=== PATIENT | female | born 1980 | race Caucasian/White ===

== ENCOUNTER 2017-08-13 13:52 | Inpatient (IN) | payer OTHER ==
[2017-08-13] MEDS ORDERED: NALOXONE 0.4 MG/ML 10 ML VIAL IVP STA (14:00)
--- NOTE | 2017-08-13 14:10 | ED ---
Overdose HPI - General Stated Complaint: Overdose Time Seen by Provider: 08/13/17 13:52 Source: EMS, RN notes reviewed, old records reviewed Mode of arrival: EMS - History of Present Illness Initial Comments: This is a 36-year-old female with a history of hypothyroidism but no known history had this time of depression or suicidal thought who is reported to taken 120 tablets of medication. She had a pill bottle for 60 Fioricet she also had a daily pill container is unclear how much end of what medication he did consume. His believes she did this before paramedics were called. She was found be unresponsive and did not respond to 4 mg total of Narcan she was in respiratory depression she did vomit and possibly aspirated. She was intubated with a 7.5 ET tube. She did maintain pressure and pulse. No other information available at this time. MD Complaint: intentional overdose - Related Data Allergies Allergy/AdvReac Type Severity Reaction Status Date / Time No Known Allergies Allergy Verified 08/13/17 15:52 Review of Systems ROS Statement: Those systems with pertinent positive or pertinent negative responses have been documented in the HPI. ROS Other: All systems not noted in ROS Statement are negative. Limitations: ROS unobtainable due to patients medical condition General Exam - General Exam Comments Initial Comments: This is a well-developed well-nourished unresponsive female intubated General appearance: other Head exam: Present: atraumatic (Unresponsive), normocephalic, normal inspection Eye exam: Present: other (Pupils midline is sluggish bilaterally) ENT exam: Present: other (7.5 ET tube present in the oropharynx) Neck exam: Present: normal inspection. Absent: tenderness, meningismus, lymphadenopathy Respiratory exam: Present: rhonchi, decreased breath sounds, other (Equal breath sounds bilaterally) Cardiovascular Exam: Present: normal rhythm, tachycardia, normal heart sounds. Absent: systolic murmur, diastolic murmur, rubs, gallop, clicks GI/Abdominal exam: Present: soft. Absent: bruit, pulsatile mass, hernia Rectal exam: Present: deferred Extremities exam: Present: normal inspection Back exam: Present: normal inspection Neurological exam: Present: other (Unresponsive) Psychiatric exam: Present: other Skin exam: Present: warm, dry, intact, normal color. Absent: rash Course Vital Signs 08/13/17 08/13/17 08/13/17 13:55 14:27 14:35 Temperature 97.3 F L Pulse Rate 112 H 111 H 108 H Respiratory 10 L 26 H 23 Rate Blood Pressure 142/76 147/92 130/80 O2 Sat by Pulse 98 98 97 Oximetry 08/13/17 15:22 Temperature Pulse Rate 89 Respiratory 14 Rate Blood Pressure 126/77 O2 Sat by Pulse 95 Oximetry - Reevaluation(s) Reevaluation #1: 08/13/17 17:07 Patient is so is no change in status no improvement but it no worse. Medical Decision Making - Medical Decision Making I did discuss the findings with the hospitalist and with Dr. Knig on the patient will be admitted. She'll continue on the IV medications and fluids. - Lab Data Result diagrams: 08/13/17 13:59 08/13/17 13:59 Lab Results 08/13/17 08/13/17 08/13/17 Range/Units 13:55 13:59 13:59 WBC (3.8-10.6) k/uL RBC (3.80-5.40) m/uL Hgb (11.4-16.0) gm/dL Hct (34.0-46.0) % MCV (80.0-100.0) fL MCH (25.0-35.0) pg MCHC (31.0-37.0) g/dL RDW (11.5-15.5) % Plt Count (150-450) k/uL Neutrophils % % Lymphocytes % % Monocytes % % Eosinophils % % Basophils % % Neutrophils # (1.3-7.7) k/uL Lymphocytes # (1.0-4.8) k/uL Monocytes # (0-1.0) k/uL Eosinophils # (0-0.7) k/uL Basophils # (0-0.2) k/uL Differential Comment Manual Slide Review Poikilocytosis (manual PT (9.0-12.0) sec INR (<1.2) Sample Site ABG pH (7.35-7.45) ABG pCO2 (35-45) mmHg ABG pO2 (83-108) mmHg ABG HCO3 (21-25) mmol/L ABG Total CO2 (19-24) mmol/L ABG O2 Saturation (94-97) % ABG Base Excess mmol/L Jluis Test FiO2 % Sodium 146 H (137-145) mmol/L Potassium 3.7 (3.5-5.1) mmol/L Chloride 106 (98-107) mmol/L Carbon Dioxide 22 (22-30) mmol/L Anion Gap 18 mmol/L BUN 10 (7-17) mg/dL Creatinine 0.50 L (0.52-1.04) mg/dL Est GFR (CKD-EPI)AfAm >90 (>60 ml/min/1.73 sqM) Est GFR (CKD-EPI)NonAf >90 (>60 ml/min/1.73 sqM) Glucose 134 H (74-99) mg/dL Osmolality 296 (280-301) mosm/kg Plasma Lactic Acid Hollis (0.7-2.0) mmol/L Calcium 9.2 (8.4-10.2) mg/dL Magnesium 1.7 (1.6-2.3) mg/dL Total Bilirubin 0.1 L (0.2-1.3) mg/dL AST 32 (14-36) U/L ALT 44 (9-52) U/L Alkaline Phosphatase 68 (38-126) U/L Ammonia 18 (<30) umol/L Total Creatine Kinase 31 (30-135) U/L CK-MB (CK-2) <0.2 (0.0-2.4) ng/mL CK-MB (CK-2) Rel Index Troponin I <0.012 (0.000-0.034) ng/mL Total Protein 6.6 (6.3-8.2) g/dL Albumin 4.0 (3.5-5.0) g/dL Amylase 60 (30-110) U/L Lipase 243 (23-300) U/L Urine Color Urine Appearance (Clear) Urine pH (5.0-8.0) Ur Specific [place] (1.001-1.035) Urine Protein (Negative) Urine Glucose (UA) (Negative) Urine Ketones (Negative) Urine Blood (Negative) Urine Nitrite (Negative) Urine Bilirubin (Negative) Urine Urobilinogen (<2.0) mg/dL Ur Leukocyte Esterase (Negative) Urine HCG, Qual (Not Detectd) Salicylates <1.0 mg/dL Urine Opiates Screen (NotDetected) Ur Oxycodone Screen (NotDetected) Urine Methadone Screen (NotDetected) Ur Propoxyphene Screen (NotDetected) Acetaminophen 222.0 H* ug/mL Ur Barbiturates Screen (NotDetected) U Tricyclic Antidepress (NotDetected) Ur Phencyclidine Scrn (NotDetected) Ur Amphetamines Screen (NotDetected) U Methamphetamines Scrn (NotDetected) U Benzodiazepines Scrn (NotDetected) Urine Cocaine Screen (NotDetected) U Marijuana (THC) Screen (NotDetected) Serum Alcohol <10 mg/dL 08/13/17 08/13/17 08/13/17 Range/Units 13:59 13:59 13:59 WBC 15.3 H (3.8-10.6) k/uL RBC 4.47 (3.80-5.40) m/uL Hgb 14.3 (11.4-16.0) gm/dL Hct 41.9 (34.0-46.0) % MCV 93.6 (80.0-100.0) fL MCH 32.0 (25.0-35.0) pg MCHC 34.2 (31.0-37.0) g/dL RDW 12.8 (11.5-15.5) % Plt Count 332 (150-450) k/uL Neutrophils % 42 % Lymphocytes % 50 % Monocytes % 5 % Eosinophils % 1 % Basophils % 0 % Neutrophils # 6.5 (1.3-7.7) k/uL Lymphocytes # 7.6 H (1.0-4.8) k/uL Monocytes # 0.8 (0-1.0) k/uL Eosinophils # 0.1 (0-0.7) k/uL Basophils # 0.1 (0-0.2) k/uL Differential Comment Manual Slide Review Performed Poikilocytosis (manual Present PT 10.4 (9.0-12.0) sec INR 1.1 (<1.2) Sample Site ABG pH (7.35-7.45) ABG pCO2 (35-45) mmHg ABG pO2 (83-108) mmHg ABG HCO3 (21-25) mmol/L ABG Total CO2 (19-24) mmol/L ABG O2 Saturation (94-97) % ABG Base Excess mmol/L Jluis Test FiO2 % Sodium (137-145) mmol/L Potassium (3.5-5.1) mmol/L Chloride (98-107) mmol/L Carbon Dioxide (22-30) mmol/L Anion Gap mmol/L BUN (7-17) mg/dL Creatinine (0.52-1.04) mg/dL Est GFR (CKD-EPI)AfAm (>60 ml/min/1.73 sqM) Est GFR (CKD-EPI)NonAf (>60 ml/min/1.73 sqM) Glucose (74-99) mg/dL Osmolality (280-301) mosm/kg Plasma Lactic Acid Hollis 3.0 H* (0.7-2.0) mmol/L Calcium (8.4-10.2) mg/dL Magnesium (1.6-2.3) mg/dL Total Bilirubin (0.2-1.3) mg/dL AST (14-36) U/L ALT (9-52) U/L Alkaline Phosphatase (38-126) U/L Ammonia (<30) umol/L Total Creatine Kinase (30-135) U/L CK-MB (CK-2) (0.0-2.4) ng/mL CK-MB (CK-2) Rel Index Troponin I (0.000-0.034) ng/mL Total Protein (6.3-8.2) g/dL Albumin (3.5-5.0) g/dL Amylase (30-110) U/L Lipase (23-300) U/L Urine Color Urine Appearance (Clear) Urine pH (5.0-8.0) Ur Specific [place] (1.001-1.035) Urine Protein (Negative) Urine Glucose (UA) (Negative) Urine Ketones (Negative) Urine Blood (Negative) Urine Nitrite (Negative) Urine Bilirubin (Negative) Urine Urobilinogen (<2.0) mg/dL Ur Leukocyte Esterase (Negative) Urine HCG, Qual (Not Detectd) Salicylates mg/dL Urine Opiates Screen (NotDetected) Ur Oxycodone Screen (NotDetected) Urine Methadone Screen (NotDetected) Ur Propoxyphene Screen (NotDetected) Acetaminophen ug/mL Ur Barbiturates Screen (NotDetected) U Tricyclic Antidepress (NotDetected) Ur Phencyclidine Scrn (NotDetected) Ur Amphetamines Screen (NotDetected) U Methamphetamines Scrn (NotDetected) U Benzodiazepines Scrn (NotDetected) Urine Cocaine Screen (NotDetected) U Marijuana (THC) Screen (NotDetected) Serum Alcohol mg/dL 08/13/17 08/13/17 08/13/17 Range/Units 14:14 14:14 14:41 WBC (3.8-10.6) k/uL RBC (3.80-5.40) m/uL Hgb (11.4-16.0) gm/dL Hct (34.0-46.0) % MCV (80.0-100.0) fL MCH (25.0-35.0) pg MCHC (31.0-37.0) g/dL RDW (11.5-15.5) % Plt Count (150-450) k/uL Neutrophils % % Lymphocytes % % Monocytes % % Eosinophils % % Basophils % % Neutrophils # (1.3-7.7) k/uL Lymphocytes # (1.0-4.8) k/uL Monocytes # (0-1.0) k/uL Eosinophils # (0-0.7) k/uL Basophils # (0-0.2) k/uL Differential Comment Manual Slide Review Poikilocytosis (manual PT (9.0-12.0) sec INR (<1.2) Sample Site R RAD ABG pH 7.29 L (7.35-7.45) ABG pCO2 51 H (35-45) mmHg ABG pO2 127 H (83-108) mmHg ABG HCO3 25 (21-25) mmol/L ABG Total CO2 26 H (19-24) mmol/L ABG O2 Saturation 99.1 H (94-97) % ABG Base Excess -2.1 mmol/L Jluis Test Yes FiO2 100 % Sodium (137-145) mmol/L Potassium (3.5-5.1) mmol/L Chloride (98-107) mmol/L Carbon Dioxide (22-30) mmol/L Anion Gap mmol/L BUN (7-17) mg/dL Creatinine (0.52-1.04) mg/dL Est GFR (CKD-EPI)AfAm (>60 ml/min/1.73 sqM) Est GFR (CKD-EPI)NonAf (>60 ml/min/1.73 sqM) Glucose (74-99) mg/dL Osmolality (280-301) mosm/kg Plasma Lactic Acid Hollis (0.7-2.0) mmol/L Calcium (8.4-10.2) mg/dL Magnesium (1.6-2.3) mg/dL Total Bilirubin (0.2-1.3) mg/dL AST (14-36) U/L ALT (9-52) U/L Alkaline Phosphatase (38-126) U/L Ammonia (<30) umol/L Total Creatine Kinase (30-135) U/L CK-MB (CK-2) (0.0-2.4) ng/mL CK-MB (CK-2) Rel Index Troponin I (0.000-0.034) ng/mL Total Protein (6.3-8.2) g/dL Albumin (3.5-5.0) g/dL Amylase (30-110) U/L Lipase (23-300) U/L Urine Color Light Yellow Urine Appearance Clear (Clear) Urine pH 5.5 (5.0-8.0) Ur Specific [place] 1.008 (1.001-1.035) Urine Protein Negative (Negative) Urine Glucose (UA) Negative (Negative) Urine Ketones Negative (Negative) Urine Blood Negative (Negative) Urine Nitrite Negative (Negative) Urine Bilirubin Negative (Negative) Urine Urobilinogen <2.0 (<2.0) mg/dL Ur Leukocyte Esterase Negative (Negative) Urine HCG, Qual Not Detected (Not Detectd) Salicylates mg/dL Urine Opiates Screen Not Detected (NotDetected) Ur Oxycodone Screen Not Detected (NotDetected) Urine Methadone Screen Not Detected (NotDetected) Ur Propoxyphene Screen Not Detected (NotDetected) Acetaminophen ug/mL Ur Barbiturates Screen Detected H (NotDetected) U Tricyclic Antidepress Not Detected (NotDetected) Ur Phencyclidine Scrn Not Detected (NotDetected) Ur Amphetamines Screen Not Detected (NotDetected) U Methamphetamines Scrn Not Detected (NotDetected) U Benzodiazepines Scrn Detected H (NotDetected) Urine Cocaine Screen Not Detected (NotDetected) U Marijuana (THC) Screen Not Detected (NotDetected) Serum Alcohol mg/dL - EKG Data -: EKG Interpreted by Me EKG shows normal: sinus rhythm (Sinus tachycardia rate 105. Interval 150 to QRS 80 QT since QTC 356/[address]-T wave changes.) - Radiology Data Radiology results: report reviewed (Imaging shows no evidence of aspiration at this time.), image reviewed Critical Care Time Critical Care Time: Yes Critical Care Time: 43 minutes of critical care time which includes monitoring initially EMS call discussed with paramedics history physical labs x-rays several reevaluation the patient discussion with the main physician and consult. Admission orders and documentation of the above Disposition Clinical Impression: Drug overdose, Tylenol overdose, Depression, Suicidal overdose, Metabolic encephalopathy Disposition: ADMITTED IP TO THIS HOSP Condition: Serious Referrals: Velasquez Hinds DO [Primary Care Provider] - 1-2 days
[2017-08-13 14:16] LABS: Basophils # (A) 0.1 k/uL (0-0.2); Basophils % (A) 0 %; Eosinophils # (A) 0.1 k/uL (0-0.7); Eosinophils % (A) 1 %; HCT 41.9 % (34.0-46.0); HGB 14.3 gm/dL (11.4-16.0); Lymphocytes # (A) 7.6 k/uL (1.0-4.8); Lymphocytes % (A) 50 %; MCHC 34.2 g/dL (31.0-37.0); MCV 93.6 fL (80.0-100.0); Mean Platelet Volume 7.6; Monocytes # (A) 0.8 k/uL (0-1.0); Monocytes % (A) 5 %; Neutrophils # (A) 6.5 k/uL (1.3-7.7); Neutrophils % (A) 42 %; Platelet Count 332 k/uL (150-450); RBC 4.47 m/uL (3.80-5.40); RDW 12.8 % (11.5-15.5); WBC 15.3 k/uL (3.8-10.6)
[2017-08-13 14:25] LABS: INR 1.1 (<1.2); Prothrombin Time 10.4 sec (9.0-12.0)
[2017-08-13 14:29] LABS: AST 32 U/L (14-36); Alcohol <10 mg/dL; Alkaline Phosphatase 68 U/L (38-126); Amylase 60 U/L (30-110); Anion Gap 18 mmol/L; Blood Urea Nitrogen 10 mg/dL (7-17); Calcium 9.2 mg/dL (8.4-10.2); Carbon Dioxide 22 mmol/L (22-30); Chloride 106 mmol/L (98-107); Glucose 134 mg/dL (74-99); Lipase 243 U/L (23-300); Magnesium 1.7 mg/dL (1.6-2.3); Potassium 3.7 mmol/L (3.5-5.1); Salicylate <1.0 mg/dL; Sodium 146 mmol/L (137-145); Total Bilirubin 0.1 mg/dL (0.2-1.3); Total Protein 6.6 g/dL (6.3-8.2)
[2017-08-13] MEDS ORDERED: SODIUM CHLORIDE 0.9% 1,000 ML IV STA (14:29)
[2017-08-13] MEDS ORDERED: SODIUM CHLORIDE 0.9% 2,000 ML IV ONE (14:29)
[2017-08-13 14:30] LABS: ALT 44 U/L (9-52)
[2017-08-13 14:36] LABS: Creatine Kinase 31 U/L (30-135)
[2017-08-13] MEDS ORDERED: PROPOFOL 1,000 MG in EMPTY BAG 1 BAG IV ONE (14:38)
[2017-08-13] MEDS ORDERED: ACETYLCYSTEINE IV 200 MG/ML 30 ML VIAL IV ONE ×2 (14:40→14:42)
[2017-08-13 14:45] LABS: ABG Base Excess -2.1 mmol/L; ABG HCO3 25 mmol/L (21-25); ABG Oxygen Saturation 99.1 % (94-97); ABG PCO2 51 mmHg (35-45); ABG PH 7.29 (7.35-7.45); ABG PO2 127 mmHg (83-108); ABG TCO2 26 mmol/L (19-24)
[2017-08-13 14:46] LABS: Amphetamine Screen,Urine Not Detected (NotDetected); Appearance,Urine Clear (Clear); Barbiturate Screen,Urine Detected (NotDetected); Benzodiazepines Screen,Urine Detected (NotDetected); Bilirubin,Urine Negative (Negative); Blood,Urine Negative (Negative); Cocaine Screen,Urine Not Detected (NotDetected); Color,Urine Light Yellow; Glucose,Urine (UA) Negative (Negative); Ketones,Urine Negative (Negative); Leukocyte Esterase,Urine Negative (Negative); Methadone Screen, Urine Not Detected (NotDetected); Nitrite,Urine Negative (Negative); Opiate Screen,Urine Not Detected (NotDetected); Oxycodone Screen, Urine Not Detected (NotDetected); PH, Urine 5.5 (5.0-8.0); Phencyclidine Screen,Urine Not Detected (NotDetected); Protein,Urine Negative (Negative); Specific Gravity,Urine 1.008 (1.001-1.035); Tricyclic Antidepressant,Urine Not Detected (NotDetected); Urn Cannabinoid Scrn Not Detected (NotDetected); Urobilinogen,Urine <2.0 mg/dL (<2.0)
[2017-08-13 14:50] LABS: Creatine Kinase MB <0.2 ng/mL (0.0-2.4); Troponin I <0.012 ng/mL (0.000-0.034)
[2017-08-13 15:00] LABS: Poikilocytosis (M) Present
[2017-08-13] MEDS ORDERED: WATER IV ONE ×6 (15:00→21:30)
[2017-08-13] MEDS ORDERED: DEXTROSE 5% IV ONE ×6 (15:00→21:30)
[2017-08-13] MEDS ORDERED: ACETYLCYSTEINE IV ONE ×6 (15:00→21:30)
--- NOTE | 2017-08-13 15:49 | XR ---
EXAMINATION TYPE: XR chest 1V portable DATE OF EXAM: 08/13/2017 COMPARISON: NONE HISTORY: Shortness of breath TECHNIQUE: Single frontal view of the chest is obtained. FINDINGS: Endotracheal tube is located at the level of the clavicles. The roger is difficult to vis ualize. There is an enteric tube with the tip overlying the expected location of the stomach. On this suboptimal portable AP semiupright view of the chest the lungs appear clear. No definite pneumothora x or pleural effusion is seen. The cardiac silhouette is within normal limits. IMPRESSION: Suboptimal examination. Endotracheal tube at the clavicles Enteric tube tip appears to be within the stomach.
[2017-08-13] MEDS ORDERED: NALOXONE 0.4 MG/ML 1 ML VIAL IV PRN (17:10)
--- NOTE | 2017-08-13 17:18 | ED ---
Medical Decision Making - Lab Data Result diagrams: 08/13/17 13:59 08/13/17 13:59 Lab Results 08/13/17 08/13/17 08/13/17 Range/Units 13:55 13:59 13:59 WBC (3.8-10.6) k/uL RBC (3.80-5.40) m/uL Hgb (11.4-16.0) gm/dL Hct (34.0-46.0) % MCV (80.0-100.0) fL MCH (25.0-35.0) pg MCHC (31.0-37.0) g/dL RDW (11.5-15.5) % Plt Count (150-450) k/uL Neutrophils % % Lymphocytes % % Monocytes % % Eosinophils % % Basophils % % Neutrophils # (1.3-7.7) k/uL Lymphocytes # (1.0-4.8) k/uL Monocytes # (0-1.0) k/uL Eosinophils # (0-0.7) k/uL Basophils # (0-0.2) k/uL Differential Comment Manual Slide Review Poikilocytosis (manual PT (9.0-12.0) sec INR (<1.2) Sample Site ABG pH (7.35-7.45) ABG pCO2 (35-45) mmHg ABG pO2 (83-108) mmHg ABG HCO3 (21-25) mmol/L ABG Total CO2 (19-24) mmol/L ABG O2 Saturation (94-97) % ABG Base Excess mmol/L Jluis Test FiO2 % Sodium 146 H (137-145) mmol/L Potassium 3.7 (3.5-5.1) mmol/L Chloride 106 (98-107) mmol/L Carbon Dioxide 22 (22-30) mmol/L Anion Gap 18 mmol/L BUN 10 (7-17) mg/dL Creatinine 0.50 L (0.52-1.04) mg/dL Est GFR (CKD-EPI)AfAm >90 (>60 ml/min/1.73 sqM) Est GFR (CKD-EPI)NonAf >90 (>60 ml/min/1.73 sqM) Glucose 134 H (74-99) mg/dL Osmolality 296 (280-301) mosm/kg Plasma Lactic Acid Hollis (0.7-2.0) mmol/L Calcium 9.2 (8.4-10.2) mg/dL Magnesium 1.7 (1.6-2.3) mg/dL Total Bilirubin 0.1 L (0.2-1.3) mg/dL AST 32 (14-36) U/L ALT 44 (9-52) U/L Alkaline Phosphatase 68 (38-126) U/L Ammonia 18 (<30) umol/L Total Creatine Kinase 31 (30-135) U/L CK-MB (CK-2) <0.2 (0.0-2.4) ng/mL CK-MB (CK-2) Rel Index Troponin I <0.012 (0.000-0.034) ng/mL Total Protein 6.6 (6.3-8.2) g/dL Albumin 4.0 (3.5-5.0) g/dL Amylase 60 (30-110) U/L Lipase 243 (23-300) U/L Urine Color Urine Appearance (Clear) Urine pH (5.0-8.0) Ur Specific [place] (1.001-1.035) Urine Protein (Negative) Urine Glucose (UA) (Negative) Urine Ketones (Negative) Urine Blood (Negative) Urine Nitrite (Negative) Urine Bilirubin (Negative) Urine Urobilinogen (<2.0) mg/dL Ur Leukocyte Esterase (Negative) Urine HCG, Qual (Not Detectd) Salicylates <1.0 mg/dL Urine Opiates Screen (NotDetected) Ur Oxycodone Screen (NotDetected) Urine Methadone Screen (NotDetected) Ur Propoxyphene Screen (NotDetected) Acetaminophen 222.0 H* ug/mL Ur Barbiturates Screen (NotDetected) U Tricyclic Antidepress (NotDetected) Ur Phencyclidine Scrn (NotDetected) Ur Amphetamines Screen (NotDetected) U Methamphetamines Scrn (NotDetected) U Benzodiazepines Scrn (NotDetected) Urine Cocaine Screen (NotDetected) U Marijuana (THC) Screen (NotDetected) Serum Alcohol <10 mg/dL 08/13/17 08/13/17 08/13/17 Range/Units 13:59 13:59 13:59 WBC 15.3 H (3.8-10.6) k/uL RBC 4.47 (3.80-5.40) m/uL Hgb 14.3 (11.4-16.0) gm/dL Hct 41.9 (34.0-46.0) % MCV 93.6 (80.0-100.0) fL MCH 32.0 (25.0-35.0) pg MCHC 34.2 (31.0-37.0) g/dL RDW 12.8 (11.5-15.5) % Plt Count 332 (150-450) k/uL Neutrophils % 42 % Lymphocytes % 50 % Monocytes % 5 % Eosinophils % 1 % Basophils % 0 % Neutrophils # 6.5 (1.3-7.7) k/uL Lymphocytes # 7.6 H (1.0-4.8) k/uL Monocytes # 0.8 (0-1.0) k/uL Eosinophils # 0.1 (0-0.7) k/uL Basophils # 0.1 (0-0.2) k/uL Differential Comment Manual Slide Review Performed Poikilocytosis (manual Present PT 10.4 (9.0-12.0) sec INR 1.1 (<1.2) Sample Site ABG pH (7.35-7.45) ABG pCO2 (35-45) mmHg ABG pO2 (83-108) mmHg ABG HCO3 (21-25) mmol/L ABG Total CO2 (19-24) mmol/L ABG O2 Saturation (94-97) % ABG Base Excess mmol/L Jluis Test FiO2 % Sodium (137-145) mmol/L Potassium (3.5-5.1) mmol/L Chloride (98-107) mmol/L Carbon Dioxide (22-30) mmol/L Anion Gap mmol/L BUN (7-17) mg/dL Creatinine (0.52-1.04) mg/dL Est GFR (CKD-EPI)AfAm (>60 ml/min/1.73 sqM) Est GFR (CKD-EPI)NonAf (>60 ml/min/1.73 sqM) Glucose (74-99) mg/dL Osmolality (280-301) mosm/kg Plasma Lactic Acid Hollis 3.0 H* (0.7-2.0) mmol/L Calcium (8.4-10.2) mg/dL Magnesium (1.6-2.3) mg/dL Total Bilirubin (0.2-1.3) mg/dL AST (14-36) U/L ALT (9-52) U/L Alkaline Phosphatase (38-126) U/L Ammonia (<30) umol/L Total Creatine Kinase (30-135) U/L CK-MB (CK-2) (0.0-2.4) ng/mL CK-MB (CK-2) Rel Index Troponin I (0.000-0.034) ng/mL Total Protein (6.3-8.2) g/dL Albumin (3.5-5.0) g/dL Amylase (30-110) U/L Lipase (23-300) U/L Urine Color Urine Appearance (Clear) Urine pH (5.0-8.0) Ur Specific [place] (1.001-1.035) Urine Protein (Negative) Urine Glucose (UA) (Negative) Urine Ketones (Negative) Urine Blood (Negative) Urine Nitrite (Negative) Urine Bilirubin (Negative) Urine Urobilinogen (<2.0) mg/dL Ur Leukocyte Esterase (Negative) Urine HCG, Qual (Not Detectd) Salicylates mg/dL Urine Opiates Screen (NotDetected) Ur Oxycodone Screen (NotDetected) Urine Methadone Screen (NotDetected) Ur Propoxyphene Screen (NotDetected) Acetaminophen ug/mL Ur Barbiturates Screen (NotDetected) U Tricyclic Antidepress (NotDetected) Ur Phencyclidine Scrn (NotDetected) Ur Amphetamines Screen (NotDetected) U Methamphetamines Scrn (NotDetected) U Benzodiazepines Scrn (NotDetected) Urine Cocaine Screen (NotDetected) U Marijuana (THC) Screen (NotDetected) Serum Alcohol mg/dL 08/13/17 08/13/17 08/13/17 Range/Units 14:14 14:14 14:41 WBC (3.8-10.6) k/uL RBC (3.80-5.40) m/uL Hgb (11.4-16.0) gm/dL Hct (34.0-46.0) % MCV (80.0-100.0) fL MCH (25.0-35.0) pg MCHC (31.0-37.0) g/dL RDW (11.5-15.5) % Plt Count (150-450) k/uL Neutrophils % % Lymphocytes % % Monocytes % % Eosinophils % % Basophils % % Neutrophils # (1.3-7.7) k/uL Lymphocytes # (1.0-4.8) k/uL Monocytes # (0-1.0) k/uL Eosinophils # (0-0.7) k/uL Basophils # (0-0.2) k/uL Differential Comment Manual Slide Review Poikilocytosis (manual PT (9.0-12.0) sec INR (<1.2) Sample Site R RAD ABG pH 7.29 L (7.35-7.45) ABG pCO2 51 H (35-45) mmHg ABG pO2 127 H (83-108) mmHg ABG HCO3 25 (21-25) mmol/L ABG Total CO2 26 H (19-24) mmol/L ABG O2 Saturation 99.1 H (94-97) % ABG Base Excess -2.1 mmol/L Jluis Test Yes FiO2 100 % Sodium (137-145) mmol/L Potassium (3.5-5.1) mmol/L Chloride (98-107) mmol/L Carbon Dioxide (22-30) mmol/L Anion Gap mmol/L BUN (7-17) mg/dL Creatinine (0.52-1.04) mg/dL Est GFR (CKD-EPI)AfAm (>60 ml/min/1.73 sqM) Est GFR (CKD-EPI)NonAf (>60 ml/min/1.73 sqM) Glucose (74-99) mg/dL Osmolality (280-301) mosm/kg Plasma Lactic Acid Hollis (0.7-2.0) mmol/L Calcium (8.4-10.2) mg/dL Magnesium (1.6-2.3) mg/dL Total Bilirubin (0.2-1.3) mg/dL AST (14-36) U/L ALT (9-52) U/L Alkaline Phosphatase (38-126) U/L Ammonia (<30) umol/L Total Creatine Kinase (30-135) U/L CK-MB (CK-2) (0.0-2.4) ng/mL CK-MB (CK-2) Rel Index Troponin I (0.000-0.034) ng/mL Total Protein (6.3-8.2) g/dL Albumin (3.5-5.0) g/dL Amylase (30-110) U/L Lipase (23-300) U/L Urine Color Light Yellow Urine Appearance Clear (Clear) Urine pH 5.5 (5.0-8.0) Ur Specific [place] 1.008 (1.001-1.035) Urine Protein Negative (Negative) Urine Glucose (UA) Negative (Negative) Urine Ketones Negative (Negative) Urine Blood Negative (Negative) Urine Nitrite Negative (Negative) Urine Bilirubin Negative (Negative) Urine Urobilinogen <2.0 (<2.0) mg/dL Ur Leukocyte Esterase Negative (Negative) Urine HCG, Qual Not Detected (Not Detectd) Salicylates mg/dL Urine Opiates Screen Not Detected (NotDetected) Ur Oxycodone Screen Not Detected (NotDetected) Urine Methadone Screen Not Detected (NotDetected) Ur Propoxyphene Screen Not Detected (NotDetected) Acetaminophen ug/mL Ur Barbiturates Screen Detected H (NotDetected) U Tricyclic Antidepress Not Detected (NotDetected) Ur Phencyclidine Scrn Not Detected (NotDetected) Ur Amphetamines Screen Not Detected (NotDetected) U Methamphetamines Scrn Not Detected (NotDetected) U Benzodiazepines Scrn Detected H (NotDetected) Urine Cocaine Screen Not Detected (NotDetected) U Marijuana (THC) Screen Not Detected (NotDetected) Serum Alcohol mg/dL Disposition Clinical Impression: Drug overdose, Tylenol overdose, Depression, Suicidal overdose, Metabolic encephalopathy, Respiratory failure Disposition: ADMITTED IP TO THIS [facility] Condition: Serious Referrals: Velasquez Hinds DO [Primary Care Provider] - 1-2 days
[2017-08-13 19:09] LABS: Glucose,Whole Blood 186 mg/dL (75-99)
--- NOTE | 2017-08-13 19:10 | P.HPIM ---
History of Present Illness 36-year-old female with a history of hypothyroidism but no known history had this time of depression or suicidal thought who is reported to taken 120 tablets of medication. She had a pill bottle for 60 Fioricet she also had a daily pill container is unclear how much end of what medication he did consume. His believes she did this before paramedics were called. She was found be unresponsive and did not respond to 4 mg total of Narcan she was in respiratory depression she did vomit and possibly aspirated. Patient was subsequently intubated and patient Tylenol level is around 220 and the time of her Fioricet ingestion is unknown and patient was started on acetyl cystine , liver enzymes are essentially within normal limits and was admitted to ICU patient has both metabolic as well as respiratory acidosis with a partial metabolic compensation lactic acidosis. Patient was started on IV fluids. Patient later became agitated because of which store stock associate recommended sedation for now. Review of Systems Unable to obtain due to her clinical condition Past Medical History Past Medical History: Asthma, Diabetes Mellitus, Pneumonia, Sleep Apnea/CPAP/ BIPAP, Thyroid Disorder Additional Past Medical History / Comment(s): information obtained from mother: gastric sleeve 2013, panniculectomy 2014 has not been diagnosed, "heart flutters ", [place], frequent ear infections, elevated liver enzymes, "has a hard time fighting infections" per mother History of Any Multi-Drug Resistant Organisms: C-DIFF, MRSA Date of last positivie culture/infection: 2014 MDRO Source:: ciff 03/2017, MRSA 2017 sputum Past Surgical History: Bariatric Surgery, Bladder Surgery, Hysterectomy, Tonsillectomy Additional Past Surgical History / Comment(s): gastric sleeve 2013, panniculectomy 2014, bowel and bladder "lifted", polyps in colon Past Psychological History: Depression, PTSD Smoking Status: Current every day smoker Past Alcohol Use History: None Reported Past Drug Use History: None Reported Medications and Allergies Allergies Allergy/AdvReac Type Severity Reaction Status Date / Time No Known Allergies Allergy Verified 08/13/17 15:52 Physical Exam Vitals: Vital Signs Temp Pulse Resp BP Pulse Ox 08/13/17 18:21 97.4 F L 74 16 115/65 97 08/13/17 17:00 97.8 F 81 18 122/71 96 08/13/17 16:00 86 18 133/86 97 08/13/17 15:22 89 14 126/77 95 08/13/17 14:35 108 H 23 130/80 97 08/13/17 14:27 111 H 26 H 147/92 98 08/13/17 13:55 97.3 F L 112 H 10 L 142/76 98 Intake and Output 08/13/17 08/13/17 08/13/17 06:59 14:59 22:59 Intake Total 2.558 Balance 2.558 Intake: Intake, IV Titration 2.558 Amount Propofol 1,000 mg In 2.558 Empty Bag 1 bag @ Titrate IV .Q0M ONE Rx#: [id number] Other: Weight 113.489 kg 113.489 kg PHYSICAL EXAMINATION: GENERAL: Intubated sedated HEENT: Pupils are round and equally reacting to light. EOMI. No scleral icterus. No conjunctival pallor. Normocephalic, atraumatic. No pharyngeal erythema. No thyromegaly. CARDIOVASCULAR: S1 and S2 present. No murmurs, rubs, or gallops. PULMONARY: Chest is clear to auscultation, no wheezing or crackles. ABDOMEN: Soft, nontender, nondistended, normoactive bowel sounds. No palpable organomegaly. MUSCULOSKELETAL: No joint swelling or deformity. EXTREMITIES: No cyanosis, clubbing, or pedal edema. NEUROLOGICAL: Unable to assess SKIN: No rashes. Results CBC & Chem 7: 08/13/17 13:59 08/13/17 13:59 Labs: Abnormal Lab Results - Last 24 Hours (Table) 08/13/17 08/13/17 08/13/17 Range/Units 13:59 13:59 13:59 WBC 15.3 H (3.8-10.6) k/uL Lymphocytes # 7.6 H (1.0-4.8) k/uL ABG pH (7.35-7.45) ABG pCO2 (35-45) mmHg ABG pO2 (83-108) mmHg ABG Total CO2 (19-24) mmol/L ABG O2 Saturation (94-97) % Sodium 146 H (137-145) mmol/L Creatinine 0.50 L (0.52-1.04) mg/dL Glucose 134 H (74-99) mg/dL Plasma Lactic Acid Hollis 3.0 H* (0.7-2.0) mmol/L Total Bilirubin 0.1 L (0.2-1.3) mg/dL Acetaminophen 222.0 H* ug/mL Ur Barbiturates Screen (NotDetected) U Benzodiazepines Scrn (NotDetected) 08/13/17 08/13/17 Range/Units 14:14 14:41 WBC (3.8-10.6) k/uL Lymphocytes # (1.0-4.8) k/uL ABG pH 7.29 L (7.35-7.45) ABG pCO2 51 H (35-45) mmHg ABG pO2 127 H (83-108) mmHg ABG Total CO2 26 H (19-24) mmol/L ABG O2 Saturation 99.1 H (94-97) % Sodium (137-145) mmol/L Creatinine (0.52-1.04) mg/dL Glucose (74-99) mg/dL Plasma Lactic Acid Hollis (0.7-2.0) mmol/L Total Bilirubin (0.2-1.3) mg/dL Acetaminophen ug/mL Ur Barbiturates Screen Detected H (NotDetected) U Benzodiazepines Scrn Detected H (NotDetected) Assessment and Plan Plan: -Tylenol overdose: Patient is on Mucomyst as per poison control repeat liver enzymes and INR level will be obtained again today as well as tomorrow morning. -Benzodiazepine overdose and opiate overdose patient is presently intubated Acute respiratory failure and unresponsiveness due to drug overdose and the patient is intubated as mentioned above please refer to store stock associate dictation for further details of and settings -Metabolic acidosis. Lactic acidosis, respiratory acidosis with partial metabolic compensation: Continue with IV fluids as per to support as mentioned above. Depression and suicidal ideation: Once patient is extubated awake, psychiatric will be consulted
[2017-08-13 19:44] LABS: ALT 43 U/L (9-52); AST 37 U/L (14-36); Alkaline Phosphatase 23 U/L (38-126)
[2017-08-13 19:51] LABS: INR 1.2 (<1.2); Prothrombin Time 11.1 sec (9.0-12.0)
[2017-08-13] MEDS: CHLORHEXIDINE GLUCONATE 15 ML CUP MUCOUS MEM SCH (21:03)
[2017-08-13] MEDS: PANTOPRAZOLE 40 MG/10 ML VIAL IV SCH (21:03)
[2017-08-13 21:27] VITALS: BMI 40.4
[2017-08-13] MEDS: PROPOFOL 1,000 MG in EMPTY BAG 1 BAG IV SCH (22:02)
[2017-08-13 23:27] LABS: Glucose,Whole Blood 119 mg/dL (75-99)
[2017-08-14 04:42] LABS: Basophils % (A) 0 %; Eosinophils % (A) 0 %; HCT 37.2 % (34.0-46.0); HGB 12.6 gm/dL (11.4-16.0); Lymphocytes # (A) 3.3 k/uL (1.0-4.8); Lymphocytes % (A) 28 %; MCH 31.7 pg (25.0-35.0); MCV 93.2 fL (80.0-100.0); Monocytes # (A) 0.4 k/uL (0-1.0); Monocytes % (A) 4 %; Neutrophils # (A) 7.9 k/uL (1.3-7.7); Neutrophils % (A) 67 %; Platelet Count 300 k/uL (150-450); RBC 3.99 m/uL (3.80-5.40); RDW 12.7 % (11.5-15.5); WBC 11.8 k/uL (3.8-10.6)
[2017-08-14 04:43] LABS: INR 1.2 (<1.2); Prothrombin Time 11.5 sec (9.0-12.0)
[2017-08-14 04:46] LABS: ALT 40 U/L (9-52); AST 62 U/L (14-36); Alkaline Phosphatase 54 U/L (38-126); Anion Gap 13 mmol/L; Blood Urea Nitrogen 5 mg/dL (7-17); Calcium 7.9 mg/dL (8.4-10.2); Carbon Dioxide 23 mmol/L (22-30); Chloride 105 mmol/L (98-107); Glucose 97 mg/dL (74-99); Magnesium 1.6 mg/dL (1.6-2.3); Phosphorus 3.7 mg/dL (2.5-4.5); Potassium 3.6 mmol/L (3.5-5.1); Sodium 141 mmol/L (137-145)
[2017-08-14] MEDS: PROPOFOL 1,000 MG in EMPTY BAG 1 BAG IV SCH ×2 (05:00→06:21)
[2017-08-14 05:05] LABS: ABG Base Excess 0.1 mmol/L; ABG HCO3 25 mmol/L (21-25); ABG PCO2 38 mmHg (35-45); ABG PH 7.42 (7.35-7.45); ABG PO2 151 mmHg (83-108); ABG TCO2 26 mmol/L (19-24)
[2017-08-14] MEDS ORDERED: Magnesium Replacement Protocol 1 EACH MISC MISCELLANE PRN (05:15)
[2017-08-14] MEDS ORDERED: Potassium Replacement Protocol 1 EACH MISC MISCELLANE PRN (05:16)
[2017-08-14] MEDS ORDERED: POTASSIUM BICARBONATE/CIT AC 20 MEQ TABLET.EFF NG-TUBE SCH (06:00)
[2017-08-14] MEDS: MAGNESIUM SULFATE-D5W PMX 1 GM in DEXTROSE/WATER 1 100ML.BAG IVPB SCH ×2 (06:14→07:25)
[2017-08-14 06:32] LABS: Glucose,Whole Blood 117 mg/dL (75-99)
--- NOTE | 2017-08-14 07:12 | XR ---
EXAMINATION TYPE: XR chest 1V DATE OF EXAM: 08/14/2017 COMPARISON: 08/13/2017 HISTORY: Ventilatory dependent respiratory failure TECHNIQUE: Single frontal view of the chest is obtained. FINDINGS: Endotracheal tube slightly cephalad in position but could be related to patient's head pos itioning. This is at the level of the clavicles approximately 4.2 cm from the roger. Enteric tube is also suboptimal placement with its fenestrated portion just above the gastroesophageal junction. Car diomediastinal silhouette is upper limits of normal. Lungs are clear. Osseous structures are intact. IMPRESSION: Endotracheal and enteric tubes appear slightly cephalad in position. Fenestrated portion enteric tube is above the gastroesophageal junction and recommendation is for advancement approximat areli 3-5 cm. Endotracheal tube is slightly cephalad in position could be advanced approximately 1-2 cm for optimal placement.
[2017-08-14] MEDS: SODIUM CHLORIDE 0.9% 1,000 ML IV SCH ×3 (08:30→20:18)
--- NOTE | 2017-08-14 09:12 | P.CNPUL ---
History of Present Illness Consult date: 08/14/17 Reason for consult: other Chief complaint: Suicide attempt with Tylenol History of present illness: Consult dated 08/14/2017 This is a 36-year-old patient with a history of hypothyroidism who apparently is also depressed and took 120 tablets of Percocet with relief. Anyway, she had a very high Tylenol level when she first came in and the patient was placed on IV N-acetylcysteine. Also, because of respiratory depression and poor mental status, she was intubated in the emergency room. She did not respond favorably to 6 mg of Narcan. Anyway, the patient's currently in the ICU on the mechanical ventilator. She cannot give any history. She has no known ALLERGIES. Her summary did not list any medications that she was taking at home prior to being here in the hospital. We don't know much about her history for her physician. Anyway, the patient is very while this morning. Vomiting be extubated rapidly. There is a slight bump in her liver enzymes. She is receiving the IV N-acetylcysteine which is the antidote for acetaminophen. Review of Systems ROS unobtainable: due to endotracheal tube Past Medical History Past Medical History: Asthma, Diabetes Mellitus, Pneumonia, Sleep Apnea/CPAP/ BIPAP, Thyroid Disorder Additional Past Medical History / Comment(s): information obtained from mother: gastric sleeve 2013, panniculectomy 2014 has not been diagnosed, "heart flutters ", [place], frequent ear infections, elevated liver enzymes, "has a hard time fighting infections" per mother History of Any Multi-Drug Resistant Organisms: C-DIFF, MRSA Date of last positivie culture/infection: 2014 MDRO Source:: ciff 03/2017, MRSA 2017 sputum Past Surgical History: Bariatric Surgery, Bladder Surgery, Hysterectomy, Tonsillectomy Additional Past Surgical History / Comment(s): gastric sleeve 2013, panniculectomy 2014, bowel and bladder "lifted", polyps in colon Past Anesthesia/Blood Transfusion Reactions: Unable to Obtain Past Psychological History: Depression, PTSD Smoking Status: Current every day smoker Past Alcohol Use History: None Reported Past Drug Use History: None Reported - Past Family History Mother Family Medical History: Unable to Obtain Medications and Allergies Allergies Allergy/AdvReac Type Severity Reaction Status Date / Time No Known Allergies Allergy Verified 08/13/17 15:52 Physical Exam Osteopathic Statement: *. No significant issues noted on an osteopathic structural exam other than those noted in the History and Physical/Consult. Vitals: Vital Signs Temp Pulse Pulse Resp BP BP Pulse Ox 08/14/17 07:00 75 16 118/76 95 08/14/17 06:00 100.7 F H 83 29 H 120/73 97 08/14/17 05:00 67 30 H 94/55 100 08/14/17 04:00 100.7 F H 64 22 95/55 97 08/14/17 03:00 65 24 119/78 97 08/14/17 02:00 63 25 H 107/69 99 08/14/17 01:30 59 L 22 91/57 99 08/14/17 01:20 65 14 91/57 98 08/14/17 01:10 59 L 21 91/57 99 08/14/17 01:00 62 20 97/61 97 08/14/17 00:50 65 21 97/61 97 08/14/17 00:40 64 21 97/61 97 08/14/17 00:30 63 22 98/62 98 08/14/17 00:20 64 22 98/62 99 08/14/17 00:10 63 22 98/62 98 08/14/17 00:00 98.7 F 64 24 101/65 98 08/13/17 23:50 63 23 101/65 99 08/13/17 23:40 64 19 101/65 97 08/13/17 23:30 62 23 95/59 99 08/13/17 23:20 63 24 95/59 99 08/13/17 23:10 66 21 95/59 98 08/13/17 23:00 65 23 101/65 98 08/13/17 22:50 67 23 101/65 98 08/13/17 22:40 69 25 H 101/65 98 08/13/17 22:30 71 24 115/72 99 08/13/17 22:20 74 18 115/72 98 08/13/17 22:10 77 23 115/72 99 08/13/17 22:00 79 27 H 126/82 99 08/13/17 21:50 72 27 H 126/82 99 08/13/17 21:44 75 28 H 126/82 99 08/13/17 21:40 78 28 H 126/82 99 08/13/17 21:30 95 42 H 103/75 97 08/13/17 21:20 71 26 H 103/75 100 08/13/17 21:10 69 15 103/75 100 08/13/17 21:00 72 20 103/75 100 08/13/17 20:50 63 23 103/75 99 08/13/17 20:40 60 18 103/75 98 08/13/17 20:30 65 23 110/90 98 08/13/17 20:20 63 24 110/90 99 08/13/17 20:10 66 24 110/90 98 08/13/17 20:00 64 24 110/90 99 08/13/17 19:50 67 25 H 110/90 99 08/13/17 19:40 66 25 H 110/90 99 08/13/17 19:30 98.0 F 66 26 H 110/90 99 08/13/17 19:20 67 27 H 110/90 99 08/13/17 19:10 75 28 H 110/90 100 08/13/17 19:04 70 27 H 99 08/13/17 18:21 97.4 F L 74 16 115/65 97 08/13/17 17:27 98.0 F 65 14 110/90 100 08/13/17 17:00 97.8 F 81 18 122/71 96 08/13/17 16:00 86 18 133/86 97 08/13/17 15:22 89 14 126/77 95 08/13/17 14:35 108 H 23 130/80 97 08/13/17 14:27 111 H 26 H 147/92 98 08/13/17 13:55 97.3 F L 112 H 10 L 142/76 98 Intake and Output 08/13/17 08/14/17 08/14/17 22:59 06:59 14:59 Intake Total 398.558 764.777 135.87 Output Total 925 1005 100 Balance -526.442 -1010.223 35.87 Intake: IV 396 628 66 Acetylcysteine IV 11,350 132 528 66 mg In Dextrose 5% in Water 1,000 ml @ 66.05 mls/hr IV ONCE ONE Rx#: [id number] Acetylcysteine IV 5,680 264 mg In Dextrose 5% in Water 500 ml @ 132.1 mls/ hr IV ONCE ONE Rx#: [id number] Magnesium Sulfate-D5w Pmx 100 1 gm In Dextrose/Water 1 100ml.bag @ 100 mls/hr IVPB Q1H [facility] Rx#: [id number] Intake, IV Titration 2.558 136.777 69.87 Amount Propofol 1,000 mg In 2.558 Empty Bag 1 bag @ Titrate IV .Q0M [facility] Rx#: [id number] Propofol 1,000 mg In 136.777 69.87 Empty Bag 1 bag @ Titrate IV .Q0M [facility] Rx#: [id number] Output: Gastric Drainage 250 300 Urine 675 1475 100 Other: Voiding Method Indwelling Catheter Indwelling Catheter # Bowel Movements 0 0 Weight 113.5 kg 128.1 kg No acute distress, oral endotracheal tube and NG tube in place. HEENT examination is grossly unremarkable. Mucous membranes are moist. Neck supple. Full range of motion. No adenopathy thyromegaly or neck vein distention. Cardiovascular examination reveals regular rhythm rate. S1-S2 normal. No S3 or S4. No discernible murmur noted. Lungs reveal coarse expiratory rhonchi. Breath sounds are equal bilaterally. No wheezes. A few scattered crackles. Abdomen soft bowel sounds are heard. No masses or tenderness. Extremities are intact. No cyanosis clubbing or edema. Skin is without rash or lesion. Neurologic examination cannot be evaluated. Results - Laboratory Findings CBC and BMP: 08/14/17 04:20 08/14/17 04:20 ABG ABG pH 7.42 (7.35-7.45) 08/14/17 04:58 ABG pCO2 38 mmHg (35-45) 08/14/17 04:58 ABG pO2 151 mmHg (83-108) H 08/14/17 04:58 ABG O2 Saturation 100.0 % (94-97) H 08/14/17 04:58 PT/INR, D-dimer PT 11.5 sec (9.0-12.0) 08/14/17 04:20 INR 1.2 (<1.2) H 08/14/17 04:20 Abnormal lab findings: Abnormal Labs 08/13/17 08/13/17 08/13/17 13:59 13:59 13:59 WBC 15.3 H Neutrophils # Lymphocytes # 7.6 H INR ABG pH ABG pCO2 ABG pO2 ABG Total CO2 ABG O2 Saturation Sodium 146 H BUN Creatinine 0.50 L Glucose 134 H POC Glucose (mg/dL) Plasma Lactic Acid Hollis 3.0 H* Calcium Total Bilirubin 0.1 L AST Alkaline Phosphatase Acetaminophen 222.0 H* Ur Barbiturates Screen U Benzodiazepines Scrn 08/13/17 08/13/17 08/13/17 14:14 14:41 19:07 WBC Neutrophils # Lymphocytes # INR ABG pH 7.29 L ABG pCO2 51 H ABG pO2 127 H ABG Total CO2 26 H ABG O2 Saturation 99.1 H Sodium BUN Creatinine Glucose POC Glucose (mg/dL) 186 H Plasma Lactic Acid Hollis Calcium Total Bilirubin AST Alkaline Phosphatase Acetaminophen Ur Barbiturates Screen Detected H U Benzodiazepines Scrn Detected H 08/13/17 08/13/17 08/13/17 19:18 19:18 19:25 WBC Neutrophils # Lymphocytes # INR 1.2 H ABG pH ABG pCO2 ABG pO2 ABG Total CO2 ABG O2 Saturation Sodium BUN Creatinine Glucose POC Glucose (mg/dL) Plasma Lactic Acid Hollis 2.3 H* Calcium Total Bilirubin AST 37 H Alkaline Phosphatase 23 L Acetaminophen Ur Barbiturates Screen U Benzodiazepines Scrn 08/13/17 08/14/17 08/14/17 23:26 04:20 04:20 WBC Neutrophils # Lymphocytes # INR 1.2 H ABG pH ABG pCO2 ABG pO2 ABG Total CO2 ABG O2 Saturation Sodium BUN 5 L Creatinine 0.50 L Glucose POC Glucose (mg/dL) 119 H Plasma Lactic Acid Hollis Calcium 7.9 L Total Bilirubin AST 62 H Alkaline Phosphatase Acetaminophen Ur Barbiturates Screen U Benzodiazepines Scrn 08/14/17 08/14/17 08/14/17 04:20 04:58 06:30 WBC 11.8 H Neutrophils # 7.9 H Lymphocytes # INR ABG pH ABG pCO2 ABG pO2 151 H ABG Total CO2 26 H ABG O2 Saturation 100.0 H Sodium BUN Creatinine Glucose POC Glucose (mg/dL) 117 H Plasma Lactic Acid Hollis Calcium Total Bilirubin AST Alkaline Phosphatase Acetaminophen Ur Barbiturates Screen U Benzodiazepines Scrn - Diagnostic Findings Chest x-ray: image reviewed (Chest x-ray labs and medications are reviewed.) Assessment and Plan Assessment: Assessment Suicide attempt with Tylenol and opiates and benzodiazepines Hypoxemic respiratory failure requiring intubation and mechanical ventilation Obesity Possible depression Plan: Plan dated 08/14/2017 The patient will continue on IV N-acetylcysteine. The patient on PSV and CPAP to see if we can extubate her. We'll continue to check liver enzymes. She'll get IV fluids. Her vent settings include the assist control mode, rate of 16, tidal volume 450, FiO2 35% PEEP of 5. On the same settings but on 50% instead, her PaO2 of 151 PaCO2 was 38 pH 7.42. The propofol was at 50 mics per kilogram per minute., IV Mucomyst, and saline IV at 150 mL an hour. If we are able to get the patient extubated, we'll make sure the patient has a sitter and will make sure that we get a psychiatric consultation. Updrafts can be discontinued. Meds labs and x-rays are all reviewed. Time with Patient: Greater than 30
[2017-08-14] MEDS: PANTOPRAZOLE 40 MG/10 ML VIAL IV SCH ×2 (09:48→20:15)
[2017-08-14 10:50] LABS: INR 1.1 (<1.2); Prothrombin Time 10.6 sec (9.0-12.0)
[2017-08-14 10:55] LABS: ALT 42 U/L (9-52); AST 83 U/L (14-36); Acetaminophen <10.0 ug/mL; Alkaline Phosphatase 61 U/L (38-126)
[2017-08-14 11:11] LABS: Partial Thromboplastin Time 20.4 sec (22.0-30.0)
[2017-08-14] MEDS: CHLORHEXIDINE GLUCONATE 15 ML CUP MUCOUS MEM SCH (11:45)
[2017-08-14 11:56] LABS: Glucose,Whole Blood 94 mg/dL (75-99)
[2017-08-14 12:50] LABS: Hemoglobin A1C 5.2 % (4.0-6.0)
[2017-08-14] MEDS ORDERED: WATER IV ONE ×2 (13:00)
[2017-08-14] MEDS ORDERED: ACETYLCYSTEINE IV ONE ×2 (13:00)
[2017-08-14] MEDS ORDERED: DEXTROSE 5% IV ONE ×2 (13:00)
--- NOTE | 2017-08-14 14:15 | P.PN ---
Subjective 36-year-old admitted the for multi drug overdose patient is extubated today. So far INR and liver enzymes are within normal limits. Patient did admit to intentional drug overdose and suicide attempt. Patient will be evaluated by psychiatry. Constitutional: Denied any fatigue denied any fever. Cardio vascular: denied any chest pain, palpitations Gastrointestinal denied any nausea vomiting Pulmonary: Denied any shortness of breath cough Neurologic denied any new focal deficits Objective - Vital Signs Vital signs: Vital Signs Temp 99.2 F 08/14/17 09:00 Pulse 73 08/14/17 11:00 Resp 11 L 08/14/17 11:00 BP 119/77 08/14/17 11:00 Pulse Ox 94 L 08/14/17 11:00 Intake & Output 08/13/17 08/14/17 08/14/17 18:59 06:59 18:59 Intake Total 2.558 1160.777 999.87 Output Total 2700 850 Balance 2.558 -1539.223 149.87 Weight 113.5 kg 128.1 kg Intake: IV 1024 330 Acetylcysteine IV 11,350 660 330 mg In Dextrose 5% in Water 1,000 ml @ 66.05 mls/hr IV ONCE ONE Rx#: [id number] Acetylcysteine IV 5,680 264 mg In Dextrose 5% in Water 500 ml @ 132.1 mls/ hr IV ONCE ONE Rx#: [id number] Magnesium Sulfate-D5w Pmx 100 1 gm In Dextrose/Water 1 100ml.bag @ 100 mls/hr IVPB Q1H [facility] Rx#: [id number] Intake, IV Titration 2.558 136.777 669.87 Amount Propofol 1,000 mg In 2.558 Empty Bag 1 bag @ Titrate IV .Q0M [facility] Rx#: [id number] Propofol 1,000 mg In 136.777 69.87 Empty Bag 1 bag @ Titrate IV .Q0M [facility] Rx#: [id number] Sodium Chloride 0.9% 1, 600 000 ml @ 150 mls/hr IV . Q6H40M [facility] Rx#:[id number] Output: Gastric Drainage 550 Urine 2150 850 Other: Voiding Method Indwelling Catheter Indwelling Catheter # Bowel Movements 0 - Exam PHYSICAL EXAMINATION: GENERAL: The patient is alert and oriented x3, not in any acute distress. Well developed, well nourished. HEENT: Pupils are round and equally reacting to light. EOMI. No scleral icterus. No conjunctival pallor. Normocephalic, atraumatic. No pharyngeal erythema. No thyromegaly. CARDIOVASCULAR: S1 and S2 present. No murmurs, rubs, or gallops. PULMONARY: Chest is clear to auscultation, no wheezing or crackles. ABDOMEN: Soft, nontender, nondistended, normoactive bowel sounds. No palpable organomegaly. MUSCULOSKELETAL: No joint swelling or deformity. EXTREMITIES: No cyanosis, clubbing, or pedal edema. NEUROLOGICAL: Gross neurological examination did not reveal any focal deficits. SKIN: No rashes. - Labs CBC & Chem 7: 08/14/17 04:20 08/14/17 04:20 Labs: Abnormal Lab Results - Last 24 Hours (Table) 08/13/17 08/13/17 08/13/17 Range/Units 13:59 13:59 13:59 WBC 15.3 H (3.8-10.6) k/uL Neutrophils # (1.3-7.7) k/uL Lymphocytes # 7.6 H (1.0-4.8) k/uL INR (<1.2) APTT (22.0-30.0) sec ABG pH (7.35-7.45) ABG pCO2 (35-45) mmHg ABG pO2 (83-108) mmHg ABG Total CO2 (19-24) mmol/L ABG O2 Saturation (94-97) % Sodium 146 H (137-145) mmol/L BUN (7-17) mg/dL Creatinine 0.50 L (0.52-1.04) mg/dL Glucose 134 H (74-99) mg/dL POC Glucose (mg/dL) (75-99) mg/dL Plasma Lactic Acid Hollis 3.0 H* (0.7-2.0) mmol/L Calcium (8.4-10.2) mg/dL Total Bilirubin 0.1 L (0.2-1.3) mg/dL AST (14-36) U/L Alkaline Phosphatase (38-126) U/L Acetaminophen 222.0 H* ug/mL Ur Barbiturates Screen (NotDetected) U Benzodiazepines Scrn (NotDetected) 08/13/17 08/13/17 08/13/17 Range/Units 14:14 14:41 19:07 WBC (3.8-10.6) k/uL Neutrophils # (1.3-7.7) k/uL Lymphocytes # (1.0-4.8) k/uL INR (<1.2) APTT (22.0-30.0) sec ABG pH 7.29 L (7.35-7.45) ABG pCO2 51 H (35-45) mmHg ABG pO2 127 H (83-108) mmHg ABG Total CO2 26 H (19-24) mmol/L ABG O2 Saturation 99.1 H (94-97) % Sodium (137-145) mmol/L BUN (7-17) mg/dL Creatinine (0.52-1.04) mg/dL Glucose (74-99) mg/dL POC Glucose (mg/dL) 186 H (75-99) mg/dL Plasma Lactic Acid Hollis (0.7-2.0) mmol/L Calcium (8.4-10.2) mg/dL Total Bilirubin (0.2-1.3) mg/dL AST (14-36) U/L Alkaline Phosphatase (38-126) U/L Acetaminophen ug/mL Ur Barbiturates Screen Detected H (NotDetected) U Benzodiazepines Scrn Detected H (NotDetected) 08/13/17 08/13/17 08/13/17 Range/Units 19:18 19:18 19:25 WBC (3.8-10.6) k/uL Neutrophils # (1.3-7.7) k/uL Lymphocytes # (1.0-4.8) k/uL INR 1.2 H (<1.2) APTT (22.0-30.0) sec ABG pH (7.35-7.45) ABG pCO2 (35-45) mmHg ABG pO2 (83-108) mmHg ABG Total CO2 (19-24) mmol/L ABG O2 Saturation (94-97) % Sodium (137-145) mmol/L BUN (7-17) mg/dL Creatinine (0.52-1.04) mg/dL Glucose (74-99) mg/dL POC Glucose (mg/dL) (75-99) mg/dL Plasma Lactic Acid Hollis 2.3 H* (0.7-2.0) mmol/L Calcium (8.4-10.2) mg/dL Total Bilirubin (0.2-1.3) mg/dL AST 37 H (14-36) U/L Alkaline Phosphatase 23 L (38-126) U/L Acetaminophen ug/mL Ur Barbiturates Screen (NotDetected) U Benzodiazepines Scrn (NotDetected) 08/13/17 08/14/17 08/14/17 Range/Units 23:26 04:20 04:20 WBC (3.8-10.6) k/uL Neutrophils # (1.3-7.7) k/uL Lymphocytes # (1.0-4.8) k/uL INR 1.2 H (<1.2) APTT (22.0-30.0) sec ABG pH (7.35-7.45) ABG pCO2 (35-45) mmHg ABG pO2 (83-108) mmHg ABG Total CO2 (19-24) mmol/L ABG O2 Saturation (94-97) % Sodium (137-145) mmol/L BUN 5 L (7-17) mg/dL Creatinine 0.50 L (0.52-1.04) mg/dL Glucose (74-99) mg/dL POC Glucose (mg/dL) 119 H (75-99) mg/dL Plasma Lactic Acid Hollis (0.7-2.0) mmol/L Calcium 7.9 L (8.4-10.2) mg/dL Total Bilirubin (0.2-1.3) mg/dL AST 62 H (14-36) U/L Alkaline Phosphatase (38-126) U/L Acetaminophen ug/mL Ur Barbiturates Screen (NotDetected) U Benzodiazepines Scrn (NotDetected) 08/14/17 08/14/17 08/14/17 Range/Units 04:20 04:58 06:30 WBC 11.8 H (3.8-10.6) k/uL Neutrophils # 7.9 H (1.3-7.7) k/uL Lymphocytes # (1.0-4.8) k/uL INR (<1.2) APTT (22.0-30.0) sec ABG pH (7.35-7.45) ABG pCO2 (35-45) mmHg ABG pO2 151 H (83-108) mmHg ABG Total CO2 26 H (19-24) mmol/L ABG O2 Saturation 100.0 H (94-97) % Sodium (137-145) mmol/L BUN (7-17) mg/dL Creatinine (0.52-1.04) mg/dL Glucose (74-99) mg/dL POC Glucose (mg/dL) 117 H (75-99) mg/dL Plasma Lactic Acid Hollis (0.7-2.0) mmol/L Calcium (8.4-10.2) mg/dL Total Bilirubin (0.2-1.3) mg/dL AST (14-36) U/L Alkaline Phosphatase (38-126) U/L Acetaminophen ug/mL Ur Barbiturates Screen (NotDetected) U Benzodiazepines Scrn (NotDetected) 08/14/17 08/14/17 08/14/17 Range/Units 08:53 10:21 10:21 WBC (3.8-10.6) k/uL Neutrophils # (1.3-7.7) k/uL Lymphocytes # (1.0-4.8) k/uL INR (<1.2) APTT 20.4 L (22.0-30.0) sec ABG pH (7.35-7.45) ABG pCO2 (35-45) mmHg ABG pO2 (83-108) mmHg ABG Total CO2 (19-24) mmol/L ABG O2 Saturation (94-97) % Sodium (137-145) mmol/L BUN (7-17) mg/dL Creatinine (0.52-1.04) mg/dL Glucose (74-99) mg/dL POC Glucose (mg/dL) (75-99) mg/dL Plasma Lactic Acid Hollis 2.3 H* (0.7-2.0) mmol/L Calcium (8.4-10.2) mg/dL Total Bilirubin (0.2-1.3) mg/dL AST 83 H (14-36) U/L Alkaline Phosphatase (38-126) U/L Acetaminophen ug/mL Ur Barbiturates Screen (NotDetected) U Benzodiazepines Scrn (NotDetected) 08/14/17 Range/Units 12:40 WBC (3.8-10.6) k/uL Neutrophils # (1.3-7.7) k/uL Lymphocytes # (1.0-4.8) k/uL INR (<1.2) APTT (22.0-30.0) sec ABG pH (7.35-7.45) ABG pCO2 (35-45) mmHg ABG pO2 (83-108) mmHg ABG Total CO2 (19-24) mmol/L ABG O2 Saturation (94-97) % Sodium (137-145) mmol/L BUN (7-17) mg/dL Creatinine (0.52-1.04) mg/dL Glucose (74-99) mg/dL POC Glucose (mg/dL) (75-99) mg/dL Plasma Lactic Acid Hollis 2.3 H* (0.7-2.0) mmol/L Calcium (8.4-10.2) mg/dL Total Bilirubin (0.2-1.3) mg/dL AST (14-36) U/L Alkaline Phosphatase (38-126) U/L Acetaminophen ug/mL Ur Barbiturates Screen (NotDetected) U Benzodiazepines Scrn (NotDetected) Microbiology - Last 24 Hours (Table) 08/13/17 22:00 Urine Culture - Preliminary Urine,Catheterized 08/13/17 14:22 Gram Stain - Preliminary Sputum Sputum Culture - Preliminary Assessment and Plan Plan: -Tylenol overdose: Patient is on Mucomyst , monitor liver enzymes and INR Acute respiratory failure and unresponsiveness due to drug overdose, patient is presently extubated -Metabolic acidosis. Lactic acidosis, resolved now Depression and suicidal ideation evaluation by psychiatric and patient presently has one-on-one sitter, will discontinue Aguirre catheter. Fevers with leukocytosis without any signs or symptoms of infection probably related to aspiration and aspiration mostly causes chemical pneumonitis and do not believe patient will require any antibiotics at this point of time, UA urine culture blood cultures are being obtained chest x-ray did not show any pneumonic process except for possible aspiration, patient doesn't have any caries teeth
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
[2017-08-14 17:52] LABS: Glucose,Whole Blood 115 mg/dL (75-99)
[2017-08-14] MEDS: lamoTRIgine 25 MG TAB PO SCH (20:42)
[2017-08-14] MEDS: ONDANSETRON 4 MG/2 ML VIAL IVP PRN (20:45)
[2017-08-15 01:10] LABS: Glucose,Whole Blood 105 mg/dL (75-99)
[2017-08-15 03:25] LABS: Basophils % (A) 1 %; Eosinophils % (A) 1 %; HCT 35.8 % (34.0-46.0); HGB 12.7 gm/dL (11.4-16.0); Lymphocytes # (A) 2.7 k/uL (1.0-4.8); Lymphocytes % (A) 40 %; MCHC 35.4 g/dL (31.0-37.0); MCV 93.1 fL (80.0-100.0); Mean Platelet Volume 6.8; Monocytes # (A) 0.3 k/uL (0-1.0); Monocytes % (A) 5 %; Neutrophils # (A) 3.5 k/uL (1.3-7.7); Neutrophils % (A) 53 %; Platelet Count 240 k/uL (150-450); RBC 3.85 m/uL (3.80-5.40); RDW 12.7 % (11.5-15.5); WBC 6.7 k/uL (3.8-10.6)
[2017-08-15 03:32] LABS: ALT 43 U/L (9-52); AST 71 U/L (14-36); Alkaline Phosphatase 59 U/L (38-126); Anion Gap 9 mmol/L; Blood Urea Nitrogen 4 mg/dL (7-17); Calcium 8.6 mg/dL (8.4-10.2); Carbon Dioxide 26 mmol/L (22-30); Chloride 106 mmol/L (98-107); Glucose 95 mg/dL (74-99); Phosphorus 2.6 mg/dL (2.5-4.5); Potassium 3.8 mmol/L (3.5-5.1); Sodium 141 mmol/L (137-145)
[2017-08-15 03:38] LABS: INR 1.1 (<1.2); Prothrombin Time 10.4 sec (9.0-12.0)
[2017-08-15] MEDS ORDERED: POTASSIUM CHLORIDE ER 20 MEQ TAB.ER PO SCH (05:00)
[2017-08-15] MEDS: ONDANSETRON 4 MG/2 ML VIAL IVP PRN (05:47)
[2017-08-15] MEDS: SODIUM CHLORIDE 0.9% 1,000 ML IV SCH (07:01)
[2017-08-15 07:02] VITALS: BP 115/69
--- NOTE | 2017-08-15 07:11 | P.PN ---
Subjective Progress Note Date: 08/15/17 Principal diagnosis: Overdose Progress note dated 08/15/2017 This is a 36-year-old patient with a suicide attempt by taking overdose of narcotic with Tylenol. The patient had a very high Tylenol level in the emergency department, started on IV N-acetylcysteine. So far it appears that her liver function has not deteriorated. She was extubated yesterday. Doing relatively well. She could be transferred down to psychiatry unit today. They have the IV discontinued. She has no ALLERGIES. No significant past medical history as far as we can tell. Apparently not receiving any medications on a regular basis at home. Vague history of asthma diabetes pneumonia sleep apnea and thyroid disorder although it's not been documented or proven. The patient currently is not receiving any supplemental oxygen. Her IV is a saline IV at 150 an hour. She's currently does have a sitter. Objective - Vital Signs Vital signs: Vital Signs Temp 98.1 F 08/15/17 04:00 Pulse 89 08/15/17 07:00 Resp 20 08/15/17 07:00 BP 115/69 08/15/17 07:00 Pulse Ox 96 08/15/17 07:00 Intake & Output 08/14/17 08/15/17 08/15/17 18:59 06:59 18:59 Intake Total 2511.87 1866 150 Output Total 1725 2800 1300 Balance 786.87 -934 -1150 Weight 125.8 kg Intake: IV 792 1716 150 Acetylcysteine IV 11,350 792 66 mg In Dextrose 5% in Water 1,000 ml @ 66.05 mls/hr IV ONCE ONE Rx#: [id number] Sodium Chloride 0.9% 1, 1650 150 000 ml @ 150 mls/hr IV . Q6H40M MIKE Rx#:[id number] Intake, IV Titration 1719.87 150 Amount Propofol 1,000 mg In 69.87 Empty Bag 1 bag @ Titrate IV .Q0M MIKE Rx#: [id number] Sodium Chloride 0.9% 1, 1650 150 000 ml @ 150 mls/hr IV . Q6H40M MIKE Rx#:[id number] Output: Urine 1725 2800 1300 Other: Voiding Method Indwelling Catheter Toilet # Voids 1 1 2 - Exam No acute distress, oriented 3. HEENT examination is grossly unremarkable. Mucous membranes are moist. No oral lesions. Neck supple. Full range of motion. No adenopathy thyromegaly or neck vein distention. Cardiovascular examination reveals regular rhythm rate. S1-S2 normal. No S3 or S4. No discernible murmur noted. Lungs reveal clear breath sounds. Her sounds are equal bilaterally. No adventitious lung sounds including wheezes rhonchi or crackles. Abdomen soft bowel sounds are heard. No masses or tenderness. Extremities are intact. No cyanosis clubbing or edema. Skin is without rash or lesion. Neurologic examination is brief but nonfocal. - Labs CBC & Chem 7: 08/15/17 02:50 08/15/17 02:55 Labs: Abnormal Lab Results - Last 24 Hours (Table) 08/14/17 08/14/17 08/14/17 Range/Units 08:53 10:21 10:21 APTT 20.4 L (22.0-30.0) sec BUN (7-17) mg/dL POC Glucose (mg/dL) (75-99) mg/dL Plasma Lactic Acid Hollis 2.3 H* (0.7-2.0) mmol/L AST 83 H (14-36) U/L 08/14/17 08/14/17 08/15/17 Range/Units 12:40 17:49 01:07 APTT (22.0-30.0) sec BUN (7-17) mg/dL POC Glucose (mg/dL) 115 H 105 H (75-99) mg/dL Plasma Lactic Acid Hollis 2.3 H* (0.7-2.0) mmol/L AST (14-36) U/L 08/15/17 Range/Units 02:55 APTT (22.0-30.0) sec BUN 4 L (7-17) mg/dL POC Glucose (mg/dL) (75-99) mg/dL Plasma Lactic Acid Hollis (0.7-2.0) mmol/L AST 71 H (14-36) U/L Microbiology - Last 24 Hours (Table) 08/13/17 13:59 Blood Culture - Preliminary Blood No Growth after 24 hours 08/13/17 22:00 Urine Culture - Preliminary Urine,Catheterized Assessment and Plan Assessment: Assessment Suicide attempt with Tylenol and opiates and benzodiazepines Hypoxemic respiratory failure requiring intubation and mechanical ventilation Obesity Possible depression Plan: Plan dated 08/14/2017 The patient will continue on IV N-acetylcysteine. The patient on PSV and CPAP to see if we can extubate her. We'll continue to check liver enzymes. She'll get IV fluids. Her vent settings include the assist control mode, rate of 16, tidal volume 450, FiO2 35% PEEP of 5. On the same settings but on 50% instead, her PaO2 of 151 PaCO2 was 38 pH 7.42. The propofol was at 50 mics per kilogram per minute., IV Mucomyst, and saline IV at 150 mL an hour. If we are able to get the patient extubated, we'll make sure the patient has a sitter and will make sure that we get a psychiatric consultation. Updrafts can be discontinued. Meds labs and x-rays are all reviewed. Plan dated 08/15/2017 The patient continued and finished her N-acetylcysteine IV. The patient was placed yesterday on PSV and CPAP and was extubated successfully. Her liver enzymes have remained relatively stable. She seemed be doing relatively well. She has been seen by psychiatry. She is able be transferred down to 3 W. We' ll discontinue her IV. Labs and x-rays are reviewed. White count is 6.7 hemoglobin 12.7 and platelet counts 240,000 PT INR are both normal. Sodium potassium chloride CO2 normal. BUN and creatinine were normal. Her AST was 71 but the rest of her liver enzymes were normal. Critical care time 32 minutes Time with Patient: Greater than 30
[2017-08-15 07:34] LABS: Glucose,Whole Blood 94 mg/dL (75-99)
[2017-08-15] MEDS: lamoTRIgine 25 MG TAB PO SCH (08:33)
[2017-08-15 09:05] VITALS: TEMP 98.2
[2017-08-15] MEDS ORDERED: PANTOPRAZOLE 40 MG TABLET PO SCH (09:30)
[2017-08-15 12:13] LABS: Glucose,Whole Blood 91 mg/dL (75-99)
[2017-08-15 12:17] VITALS: PULSE 70; RESP 12
--- NOTE | 2017-08-15 17:08 | P.DS ---
Providers Date of admission: 08/13/17 17:10 Attending physician: Laure Coombs Consults: 08/13/17 17:10 Consult Physician Stat Consulting Provider: Markell King Consult Reason/Comments: Critical care management and Vent management Do you want consulting provider notified?: Already Contacted 08/14/17 08:47 Consult Physician Urgent Consulting Provider: Clem Fitzgerald Consult Reason/Comments: Intentional Overdose, suicidal ideation Do you want consulting provider notified?: Already Contacted Primary care physician: Velasquez [facility] Course: 36-year-old admitted with suicide attempt multiple drug overdose severe depression was intubated for several subsequently extubated patient was treated for acetaminophen toxicity. Patient liver enzymes remain stable INR remained stable patient is cleared for transfer to psychiatric floor patient is presently transferred to psychiatric floor. PHYSICAL EXAMINATION: GENERAL: The patient is alert and oriented x3, not in any acute distress. Well developed, well nourished. HEENT: Pupils are round and equally reacting to light. EOMI. No scleral icterus. No conjunctival pallor. Normocephalic, atraumatic. No pharyngeal erythema. No thyromegaly. CARDIOVASCULAR: S1 and S2 present. No murmurs, rubs, or gallops. PULMONARY: Chest is clear to auscultation, no wheezing or crackles. ABDOMEN: Soft, nontender, nondistended, normoactive bowel sounds. No palpable organomegaly. MUSCULOSKELETAL: No joint swelling or deformity. EXTREMITIES: No cyanosis, clubbing, or pedal edema. NEUROLOGICAL: Gross neurological examination did not reveal any focal deficits. SKIN: No rashes. For her other medical problems and hospitalization course please refer to my progress note from as today patient is being discharged on Augmentin for aspiration pneumonia Patient Condition at Discharge: Serious Plan - Discharge Summary Discharge Rx Participant: No New Discharge Prescriptions: New lamoTRIgine [LaMICtal] 50 mg PO BID tab Continue traMADol HCL [Ultram] 50 mg PO QID PRN PRN Reason: Pain Albuterol Inhaler [Ventolin Hfa Inhaler] 2 puff INHALATION RT-Q6H PRN PRN Reason: Shortness Of Breath Pantoprazole [Protonix] 40 mg PO AC-BRKFST Montelukast [Singulair] 10 mg PO DAILY Lidocaine 5% Oint [Xylocaine 5% Oint] 2 gram TOPICAL QID PRN PRN Reason: Pain Levothyroxine Sodium [Synthroid] 50 mcg PO DAILY Fluticasone Nasal [place] [Flonase Nasal [place]] 1 - 2 spr EA NOSTRIL DAILY PRN PRN Reason: Allergy Symptoms Fluconazole [Diflucan] 150 mg PO Q72H PRN PRN Reason: INFECTION Butalb/APAP/Caff 50-325-40Mg [Fioricet 50-325-40] 1 tab PO TID PRN PRN Reason: Migraine Headache Albuterol Nebulized [Ventolin Nebulized] 2.5 mg INHALATION RT-Q4H PRN PRN Reason: Shortness Of Breath Selenium Sulfide 2.25% Lotion 1 applic TOPICAL DIRECTED Selenium Sulfide 2.25% Shampoo 1 applic TOPICAL DIRECTED Calcium 500mg/Vit [id number] 1 tab PO DAILY Cyanocobalamin (Vitamin B-12) [Vitamin B-12] 1,000 mcg PO DAILY Hydrocortisone Cream [Hydrocortisone 2.5% Cream] 1 applic TOPICAL QID PRN PRN Reason: Skin Irritation Multivitamins, Thera [Multivitamin (formulary)] 1 tab PO DAILY Amoxic-Pot Clav 875-125Mg [Augmentin 875-125] 1 tab PO Q12H #12 Changed Docusate [Colace] 100 mg PO BID PRN #0 PRN Reason: Constipation Polyethylene Glycol 3350 [Miralax] 17 gm PO DAILY PRN #0 PRN Reason: Constipation Discontinued buPROPion XL [Wellbutrin Xl] 150 mg PO DAILY metFORMIN HCL ER [Glucophage Xr] 500 mg PO DAILY Mirtazapine [Remeron] 15 mg PO HS hydrOXYzine HCL [Atarax] 50 mg PO BID PRN PRN Reason: Anxiety Hydrocodone/Acetaminophen [[place] 10-325] 1 tab PO QID PRN PRN Reason: Pain Furosemide [Lasix] 20 mg PO DAILY PRN PRN Reason: Edema FLUoxetine HCL [PROzac] 20 mg PO DAILY Dicyclomine [Bentyl] 20 mg PO TID PRN PRN Reason: Gi Upset Cetirizine HCl [Zyrtec] 10 mg PO DAILY busPIRone HCL 15 mg PO BID buPROPion HCL [Wellbutrin XL] 300 mg PO DAILY ALPRAZolam [Xanax] 1 mg PO QID PRN PRN Reason: Anxiety predniSONE 40 mg PO -[facility] Discharge Medication List Albuterol Inhaler [Ventolin Hfa Inhaler] 2 puff INHALATION RT-Q6H PRN 08/14/17 [ History] Albuterol Nebulized [Ventolin Nebulized] 2.5 mg INHALATION RT-Q4H PRN 08/14/17 [ History] Butalb/APAP/Caff 50-325-40Mg [Fioricet 50-325-40] 1 tab PO TID PRN 08/14/17 [ History] Calcium 500mg/Vit [id number] 1 tab PO DAILY 08/14/17 [History] Cyanocobalamin (Vitamin B-12) [Vitamin B-12] 1,000 mcg PO DAILY 08/14/17 [ History] Fluconazole [Diflucan] 150 mg PO Q72H PRN 08/14/17 [History] Fluticasone Nasal [place] [Flonase Nasal [place]] 1 - 2 spr EA NOSTRIL DAILY PRN [History] Hydrocortisone Cream [Hydrocortisone 2.5% Cream] 1 applic TOPICAL QID PRN [History] Levothyroxine Sodium [Synthroid] 50 mcg PO DAILY 08/14/17 [History] Lidocaine 5% Oint [Xylocaine 5% Oint] 2 gram TOPICAL QID PRN 08/14/17 [History] Montelukast [Singulair] 10 mg PO DAILY 08/14/17 [History] Multivitamins, Thera [Multivitamin (formulary)] 1 tab PO DAILY 08/14/17 [History ] Pantoprazole [Protonix] 40 mg PO [facility] 08/14/17 [History] Selenium Sulfide 2.25% Lotion 1 applic TOPICAL DIRECTED 08/14/17 [History] Selenium Sulfide 2.25% Shampoo 1 applic TOPICAL DIRECTED 08/14/17 [History] traMADol HCL [Ultram] 50 mg PO QID PRN 08/14/17 [History] Amoxic-Pot Clav 875-125Mg [Augmentin 875-125] 1 tab PO Q12H #12 08/15/17 [Rx] Docusate [Colace] 100 mg PO BID PRN #0 08/15/17 [Rx] Polyethylene Glycol 3350 [Miralax] 17 gm PO DAILY PRN #0 08/15/17 [Rx] lamoTRIgine [LaMICtal] 50 mg PO BID tab 08/15/17 [Rx] Follow up Appointment(s)/Referral(s): Velasquez Hinds DO [Primary Care Provider] - 2 Weeks Discharge Disposition: TRANSFER TO PSYCH HOSP/UNIT
[2017-08-16] MEDS ORDERED: LEVOTHYROXINE 50 MCG TAB PO SCH (06:30)
== END 2017-08-15 12:59 | DRG 917 ==
LOC: EC 13:52 → SUPCPDRO 13:52 → 6ICU 17:10
PROVIDERS: ADMIT Internal Medicine; ATTEND Internal Medicine
PROC: 5A1935Z Respiratory Ventilation, Less than 24 Consecutive Hours (ICD-10-PCS; principal; 2017-08-13)
PROC: 0BH17EZ Insertion of Endotracheal Airway into Trachea, Via Natural or Artificial Opening (ICD-10-PCS; 2017-08-13)
DX: T39.1X2A Poisoning by 4-Aminophenol derivatives, intentional self-harm, initial encounter (principal); G93.41 Metabolic encephalopathy; J96.01 Acute respiratory failure with hypoxia; J68.0 Bronchitis and pneumonitis due to chemicals, gases, fumes and vapors; E87.2 Acidosis; Z68.41 Body mass index [BMI] 40.0-44.9, adult; E03.9 Hypothyroidism, unspecified; T40.602A Poisoning by unspecified narcotics, intentional self-harm, initial encounter; T42.4X2A Poisoning by benzodiazepines, intentional self-harm, initial encounter; E11.9 Type 2 diabetes mellitus without complications; E66.9 Obesity, unspecified; F17.200 Nicotine dependence, unspecified, uncomplicated; F32.9 Major depressive disorder, single episode, unspecified; F43.10 Post-traumatic stress disorder, unspecified; G47.30 Sleep apnea, unspecified; J45.909 Unspecified asthma, uncomplicated; Z86.14 Personal history of Methicillin resistant Staphylococcus aureus infection; Z90.710 Acquired absence of both cervix and uterus; Z71.6 Tobacco abuse counseling; Y92.9 Unspecified place or not applicable
CPT/HCPCS: 36415; 36600; 43753; 51702; 71045; 80048; 80053; 80306; 80320; 81003; 81025; 82140; 82150; 82271; 82550; 82553; 82805; 83036; 83520; 83605; 83690; 83735; 83930; 84075; 84100; 84450; 84460; 84484; 85025; 85610; 85730; 87040; 87070; 87086; 87205; 93005; 94002; 94003; 96361; 96365; 96366; 96375; 99291

== ENCOUNTER 2017-08-15 11:39 | Inpatient (IN) | payer MEDICAID ==
[2017-08-15] MEDS ORDERED: MAGNESIUM HYDROXIDE 2,400 MG/10 ML CUP PO PRN (14:30)
[2017-08-15] MEDS ORDERED: MAG HYDROX/AL HYDROX/SIMETH 30 ML CUP PO PRN (14:30)
[2017-08-15] MEDS ORDERED: POLYETHYLENE GLYCOL 3350 17 GM POWD.PACK PO PRN (14:40)
[2017-08-15] MEDS ORDERED: traMADol 50 MG TAB PO PRN (14:40)
[2017-08-15] MEDS ORDERED: ALBUTEROL NEBULIZED 2.5 MG/3 ML INHALATION PRN (14:40)
[2017-08-15] MEDS ORDERED: LIDOCAINE 5% OINTMENT 50 GM JAR TOPICAL PRN (14:40)
[2017-08-15] MEDS ORDERED: ALBUTEROL INHALER 60 PUFF/8 GM INHALER INHALATION PRN (14:40)
[2017-08-15] MEDS ORDERED: HYDROCORTISONE 1% CREAM 30 GM TUBE TOPICAL PRN (14:40)
[2017-08-15] MEDS ORDERED: FLUTICASONE 50MCG/SPRAY NASAL 16GM EA NOSTRIL PRN (14:40)
[2017-08-15] MEDS: NICOTINE 7MG/24HR PATCH TRANSDERM SCH (15:32)
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
[2017-08-15 18:23] VITALS: BMI 41.4
[2017-08-15] MEDS: AMOXIC-POT CLAV 875-125MG 1 EACH TAB PO SCH (21:59)
[2017-08-15] MEDS: lamoTRIgine 25 MG TAB PO SCH (21:59)
[2017-08-16] MEDS: LEVOTHYROXINE 50 MCG TAB PO SCH (06:17)
[2017-08-16] MEDS: PANTOPRAZOLE 40 MG TABLET PO SCH (09:02)
[2017-08-16] MEDS: lamoTRIgine 25 MG TAB PO SCH (09:02)
[2017-08-16] MEDS: AMOXIC-POT CLAV 875-125MG 1 EACH TAB PO SCH ×2 (09:02→21:46)
[2017-08-16] MEDS: CALCIUM CARB-VIT D 500MG-200UN 1 EACH TAB PO SCH (09:02)
[2017-08-16] MEDS: NICOTINE 7MG/24HR PATCH TRANSDERM SCH (09:15)
[2017-08-16] MEDS ORDERED: ONDANSETRON 4 MG TAB PO PRN (09:46)
--- NOTE | 2017-08-16 09:56 | P.PN ---
Progress Note - Text Progress Note Date: 08/16/17 Patient was seen for routine follow-up examination. She is lying down on her bed with the lights turned off. She said she talked to her parents and her grandmother, her parents are telling her daughters that she is not a good parent , is not sick, is acting like sick, is not a good role model for them etc. She slept well last night, stays by herself, does not attend groups or socialize. She was advised to get out of the bed, to socialize, to attend groups and learn better coping skills etc. He was also counseled that staying in bed will make her sad feelings worse and it will take a longer time to get better. She agreed to get out of bed and started attending groups. She does not have any rashes and does not report of any adverse effects from Lamictal. She agreed to get the dose increased. She continues to complain of stomachache in reference to her gastric surgery that was done about 3 years ago. She said she has filled out application for low income housing. This is an obese ambulatory female with adequate hygiene. She is polite and cooperative. She does not show any psychomotor agitation or retardation. Her speech is soft short and goal directed. Her mood is dysphoric and affect is labile. She gets tearful quite easily. She continues to deny suicide, homicide thoughts, hallucinations and delusional thinking. She is oriented with adequate memory concentration etc. Plan: Increase Lamictal 200 mg twice a day, continue groups and other therapies.
[2017-08-16] MEDS ORDERED: lamoTRIgine 25 MG TAB PO ONE (10:00)
[2017-08-16] MEDS: MULTIVITAMINS, THERA 1 EACH TAB PO SCH (12:03)
--- NOTE | 2017-08-16 16:08 | P.CONS ---
History of Present Illness - Reason for Consult Medical clearance - History of Present Illness Patient was discharged from my service as today after she came in with suicidal ideation suicide attempt with multiple medications including his stamina-based medications patient was treated for stamina and toxicity with normal liver enzymes patient looks much better today. Patient denied any fever chills nausea vomiting abdominal pain. Patient is being treated for bipolar and depression. Review of Systems REVIEW OF SYSTEMS: CONSTITUTIONAL: No fever, no malaise, no fatigue. HEENT: No recent visual problems or hearing problems. Denied any sore throat. CARDIOVASCULAR: No chest pain, orthopnea, PND, no palpitations, no syncope. PULMONARY: No shortness of breath, no cough, no hemoptysis. GASTROINTESTINAL: No diarrhea, no nausea, no vomiting, no abdominal pain. Normoactive bowel sounds. NEUROLOGICAL: No headaches, no weakness, no numbness. HEMATOLOGICAL: Denies any bleeding or petechiae. GENITOURINARY: Denies any burning micturition, frequency, or urgency. MUSCULOSKELETAL/RHEUMATOLOGICAL: Denies any joint pain, swelling, or any muscle pain. ENDOCRINE: Denies any polyuria or polydipsia. The rest of the 14-point review of systems is negative. Past Medical History Past Medical History: Asthma, Diabetes Mellitus, Pneumonia, Sleep Apnea/CPAP/ BIPAP, Thyroid Disorder Additional Past Medical History / Comment(s): information obtained from mother: gastric sleeve 2013, panniculectomy 2014 has not been diagnosed, "heart flutters ", [place], frequent ear infections, elevated liver enzymes, "has a hard time fighting infections" per mother History of Any Multi-Drug Resistant Organisms: C-DIFF, MRSA Year Discovered:: 2014 MDRO Source:: ciff 03/2017, MRSA 2017 sputum Past Surgical History: Bariatric Surgery, Bladder Surgery, Hysterectomy, Tonsillectomy Additional Past Surgical History / Comment(s): gastric sleeve 2013, panniculectomy 2014, bowel and bladder "lifted", polyps in colon Past Anesthesia/Blood Transfusion Reactions: Unable to Obtain Smoking Status: Current every day smoker - Past Family History Mother Family Medical History: Unable to Obtain Medications and Allergies Home Medications Medication Instructions Recorded Confirmed Type Albuterol Inhaler [Ventolin Hfa 2 puff INHALATION RT-Q6H PRN 08/14/17 08/15/17 History Inhaler] Albuterol Nebulized [Ventolin 2.5 mg INHALATION RT-Q4H PRN 08/14/17 08/15/17 History Nebulized] Butalb/APAP/Caff 50-325-40Mg 1 tab PO TID PRN 08/14/17 08/15/17 History [Fioricet 50-325-40] Calcium 500mg/Vit [id number] 1 tab PO DAILY 08/14/17 08/15/17 History Cyanocobalamin (Vitamin B-12) 1,000 mcg PO DAILY 08/14/17 08/15/17 History [Vitamin B-12] Fluconazole [Diflucan] 150 mg PO Q72H PRN 08/14/17 08/15/17 History Fluticasone Nasal Kane [Flonase 1 - 2 spr EA NOSTRIL DAILY PRN 08/14/17 History Nasal Kane] Hydrocortisone Cream 1 applic TOPICAL QID PRN 08/14/17 08/15/17 History [Hydrocortisone 2.5% Cream] Levothyroxine Sodium [Synthroid] 50 mcg PO DAILY 08/14/17 08/15/17 History Lidocaine 5% Oint [Xylocaine 5% 2 gram TOPICAL QID PRN 08/14/17 08/15/17 History Oint] Montelukast [Singulair] 10 mg PO DAILY 08/14/17 08/15/17 History Multivitamins, Thera [Multivitamin 1 tab PO DAILY 08/14/17 08/15/17 History (formulary)] Pantoprazole [Protonix] 40 mg PO AC-BRKFST 08/14/17 08/15/17 History Selenium Sulfide 2.25% Lotion 1 applic TOPICAL DIRECTED 08/14/17 08/15/17 History Selenium Sulfide 2.25% Shampoo 1 applic TOPICAL DIRECTED 08/14/17 08/15/17 History traMADol HCL [Ultram] 50 mg PO QID PRN 08/14/17 08/15/17 History Amoxic-Pot Clav 875-125Mg 1 tab PO Q12H #12 08/15/17 08/15/17 Rx [Augmentin 875-125] Docusate [Colace] 100 mg PO BID PRN #0 08/15/17 08/15/17 Rx Polyethylene Glycol 3350 [Miralax] 17 gm PO DAILY PRN #0 08/15/17 08/15/17 Rx lamoTRIgine [LaMICtal] 50 mg PO BID tab 08/15/17 08/15/17 Rx Allergies Allergy/AdvReac Type Severity Reaction Status Date / Time Iodinated Contrast- Oral and Allergy Unknown Verified 08/15/17 13:21 IV Dye iodine Allergy Unknown Verified 08/15/17 13:21 Physical Exam Vitals: Vital Signs Temp Pulse Resp BP 08/16/17 06:34 99 F 70 18 102/55 08/15/17 17:37 98 F PHYSICAL EXAMINATION: GENERAL: The patient is alert and oriented x3, not in any acute distress. Well developed, well nourished. HEENT: Pupils are round and equally reacting to light. EOMI. No scleral icterus. No conjunctival pallor. Normocephalic, atraumatic. No pharyngeal erythema. No thyromegaly. CARDIOVASCULAR: S1 and S2 present. No murmurs, rubs, or gallops. PULMONARY: Chest is clear to auscultation, no wheezing or crackles. ABDOMEN: Soft, nontender, nondistended, normoactive bowel sounds. No palpable organomegaly. MUSCULOSKELETAL: No joint swelling or deformity. EXTREMITIES: No cyanosis, clubbing, or pedal edema. NEUROLOGICAL: Gross neurological examination did not reveal any focal deficits. SKIN: No rashes. Assessment and Plan Plan: -Severe depression and bipolar disorder: Management as per primary service -Recent Tylenol overdose, was treated for with Mucomyst -Hypothyroidism continue with levothyroxine -Aspiration pneumonitis for which patient is on Augmentin for about 5 days -Sleep apnea need to continue her CPAP machine -Type 2 diabetes mellitus not requiring any medications at this time dietary counseling was provided. -Asthma without any acute exacerbation -Tobacco abuse: Counseling was provided
[2017-08-16] MEDS: lamoTRIgine 100 MG TAB PO SCH (21:46)
[2017-08-17] MEDS: LEVOTHYROXINE 50 MCG TAB PO SCH (06:28)
[2017-08-17 06:51] VITALS: RESP 16
[2017-08-17] MEDS: PANTOPRAZOLE 40 MG TABLET PO SCH (08:49)
[2017-08-17] MEDS: AMOXIC-POT CLAV 875-125MG 1 EACH TAB PO SCH ×2 (08:49→20:54)
[2017-08-17] MEDS: lamoTRIgine 100 MG TAB PO SCH ×2 (08:49→20:54)
[2017-08-17] MEDS: MULTIVITAMINS, THERA 1 EACH TAB PO SCH (08:50)
[2017-08-17] MEDS: NICOTINE 7MG/24HR PATCH TRANSDERM SCH (08:50)
[2017-08-17] MEDS: CALCIUM CARB-VIT D 500MG-200UN 1 EACH TAB PO SCH (08:50)
[2017-08-17] MEDS ORDERED: IBUPROFEN 400 MG TAB PO PRN (11:22)
--- NOTE | 2017-08-17 11:26 | P.PN ---
Progress Note - Text Progress Note Date: 08/17/17 Patient was seen for follow-up examination. She is able to walk independently without a walker. She has been attending groups and participating. She is socializing with select group of peers. Apparently she talked with her mother who wants her to come home, continue therapy etc. after discharge. Patient asked if she could be on Motrin for pain instead of tramadol or Tylenol. This is an obese ambulatory female with adequate hygiene. She is wearing hospital gowns. She does not show any psychomotor agitation or retardation. Her speech is spontaneous relevant and goal-directed. Her mood is euthymic to cheerful and affect is appropriate. She continues to deny suicide and homicide thoughts. She denies hallucinations and delusional thinking. She is well oriented with adequate memory concentration general knowledge etc. Plan: Continue Lamictal 100 mg twice a day, groups and other therapies. Motrin when necessary for pain. Consider discharging tomorrow if everything goes well today.
[2017-08-18 01:22] VITALS: BP 102/58; PULSE 63; TEMP 98.5
[2017-08-18] MEDS: LEVOTHYROXINE 50 MCG TAB PO SCH (06:21)
[2017-08-18] MEDS: CALCIUM CARB-VIT D 500MG-200UN 1 EACH TAB PO SCH (08:48)
[2017-08-18] MEDS: AMOXIC-POT CLAV 875-125MG 1 EACH TAB PO SCH (08:48)
[2017-08-18] MEDS: PANTOPRAZOLE 40 MG TABLET PO SCH (08:48)
[2017-08-18] MEDS: lamoTRIgine 100 MG TAB PO SCH (08:48)
--- NOTE | 2017-08-18 09:24 | P.DS ---
Providers Date of admission: 08/15/17 13:05 Expected date of discharge: 08/18/17 Attending physician: Clem Fitzgerald Consults: 08/15/17 14:30 Consult Physician Routine Consulting Provider: Fabio Gallo Consult Reason/Comments: H and P and medical management Do you want consulting provider notified?: Yes Primary care physician: Stated None Hospital Course: Patient had her psychiatric evaluation, physical examination and psychosocial evaluation. After psychiatric evaluation she was continued on Lamictal which was started in the ICU the day before. The first day she stayed by herself in her room. Next morning she was encouraged to get out of the bed, socialized with peers and attended groups to get better quick. Following this she started to socialize attending groups and participate. Her Lamictal was increased to 100 mg twice a day since she did not have any adverse effect. Her mood became more stable, cheerful and she continued to deny suicide and homicide thoughts. She also talked to her mother and they made up, she agreed to go back and stay with her parents, continue with outpatient treatment etc. In view of all these it was agreed to discharge her. Condition on discharge: This is an obese ambulatory female with adequate hygiene. She is polite and cooperative. She does not show any psychomotor agitation or retardation. Her speech is spontaneous relevant and goal-directed. Her mood is cheerful and affect is appropriate. She continues to deny suicide and homicide thoughts. She also denies hallucinations and delusional thinking. She is well oriented with good memory concentration general knowledge etc. her insight and judgment have improved quite a bit. 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 ALLERGY to iodine and IVP dye. GERD. Hypothyroidism. ALLERGIC rhinitis. Chronic pain. Status post gastric sleeve surgery. Chronic constipation. Ectopic dermatitis of chest and back. Obesity. Patient was advised and agreed to take her medications as prescribed, not to drive or operate machinery if she feels sleepy, to learn better coping skills through DBT, to call her psychiatrist or therapist if she develops any suicidal thoughts and if she cannot get hold of them to go to nearest ER. Plan - Discharge Summary Discharge Rx Participant: No New Discharge Prescriptions: New Ibuprofen [Motrin] 400 mg PO Q8HR PRN 30 Days #45 tab PRN Reason: Pain lamoTRIgine [LaMICtal] 100 mg PO BID 30 Days #60 tab Mag Hydrox/Al Hydrox/Simeth [Maalox] 30 ml PO Q4HR PRN cup PRN Reason: Gi Upset Continue Pantoprazole [Protonix] 40 mg PO AC-BRKFST Levothyroxine Sodium [Synthroid] 50 mcg PO DAILY Fluticasone Nasal Hallie [Flonase Nasal Hallie] 1 - 2 spr EA NOSTRIL DAILY PRN PRN Reason: Allergy Symptoms Selenium Sulfide 2.25% Lotion 1 applic TOPICAL DIRECTED Calcium 500mg/Vit [id number] 1 tab PO DAILY Multivitamins, Thera [Multivitamin (formulary)] 1 tab PO DAILY Docusate [Colace] 100 mg PO BID PRN #0 PRN Reason: Constipation Polyethylene Glycol 3350 [Miralax] 17 gm PO DAILY PRN #0 PRN Reason: Constipation Amoxic-Pot Clav 875-125Mg [Augmentin 875-125] 1 tab PO Q12H 3 Days #6 tab Cyanocobalamin (Vitamin B-12) [Vitamin B-12] 1,000 mcg PO DAILY 30 Days #30 tablet Hydrocortisone Cream [Hydrocortisone 2.5% Cream] 1 applic TOPICAL QID PRN 30 Days #60 applic PRN Reason: Skin Irritation Discontinued traMADol HCL [Ultram] 50 mg PO QID PRN PRN Reason: Pain Albuterol Inhaler [Ventolin Hfa Inhaler] 2 puff INHALATION RT-Q6H PRN PRN Reason: Shortness Of Breath Montelukast [Singulair] 10 mg PO DAILY Lidocaine 5% Oint [Xylocaine 5% Oint] 2 gram TOPICAL QID PRN PRN Reason: Pain Fluconazole [Diflucan] 150 mg PO Q72H PRN PRN Reason: INFECTION Butalb/APAP/Caff 50-325-40Mg [Fioricet 50-325-40] 1 tab PO TID PRN PRN Reason: Migraine Headache Albuterol Nebulized [Ventolin Nebulized] 2.5 mg INHALATION RT-Q4H PRN PRN Reason: Shortness Of Breath Selenium Sulfide 2.25% Shampoo 1 applic TOPICAL DIRECTED lamoTRIgine [LaMICtal] 50 mg PO BID tab Discharge Medication List Calcium 500mg/Vit [id number] 1 tab PO DAILY 08/14/17 [History] Fluticasone Nasal Hallie [Flonase Nasal Hallie] 1 - 2 spr EA NOSTRIL DAILY PRN [History] Levothyroxine Sodium [Synthroid] 50 mcg PO DAILY 08/14/17 [History] Multivitamins, Thera [Multivitamin (formulary)] 1 tab PO DAILY 08/14/17 [History ] Pantoprazole [Protonix] 40 mg PO AC-BRKFST 08/14/17 [History] Selenium Sulfide 2.25% Lotion 1 applic TOPICAL DIRECTED 08/14/17 [History] Docusate [Colace] 100 mg PO BID PRN #0 08/15/17 [Rx] Polyethylene Glycol 3350 [Miralax] 17 gm PO DAILY PRN #0 08/15/17 [Rx] Amoxic-Pot Clav 875-125Mg [Augmentin 875-125] 1 tab PO Q12H 3 Days #6 tab [Rx] Cyanocobalamin (Vitamin B-12) [Vitamin B-12] 1,000 mcg PO DAILY 30 Days #30 tablet 08/18/17 [Rx] Hydrocortisone Cream [Hydrocortisone 2.5% Cream] 1 applic TOPICAL QID PRN 30 Days #60 applic 08/18/17 [Rx] Ibuprofen [Motrin] 400 mg PO Q8HR PRN 30 Days #45 tab 08/18/17 [Rx] Mag Hydrox/Al Hydrox/Simeth [Maalox] 30 ml PO Q4HR PRN cup 08/18/17 [Rx] lamoTRIgine [LaMICtal] 100 mg PO BID 30 Days #60 tab 08/18/17 [Rx]
[2017-08-18] MEDS: MULTIVITAMINS, THERA 1 EACH TAB PO SCH (12:07)
== END 2017-08-18 13:50 | disposition home or self-care (01) | DRG 882 ==
LOC: 3MHU 13:05
PROVIDERS: ADMIT Psychiatry & Neurology Psychiatry; ATTEND Psychiatry & Neurology Psychiatry
DX: F43.25 Adjustment disorder with mixed disturbance of emotions and conduct (principal); J69.0 Pneumonitis due to inhalation of food and vomit; R45.851 Suicidal ideations; Z68.41 Body mass index [BMI] 40.0-44.9, adult; E03.9 Hypothyroidism, unspecified; E11.9 Type 2 diabetes mellitus without complications; E66.9 Obesity, unspecified; F17.200 Nicotine dependence, unspecified, uncomplicated; F32.9 Major depressive disorder, single episode, unspecified; F43.10 Post-traumatic stress disorder, unspecified; F60.9 Personality disorder, unspecified; G47.30 Sleep apnea, unspecified; G89.29 Other chronic pain; J45.909 Unspecified asthma, uncomplicated; K21.9 Gastro-esophageal reflux disease without esophagitis; K59.09 Other constipation; L30.9 Dermatitis, unspecified; Z79.899 Other long term (current) drug therapy; Z98.84 Bariatric surgery status; Z91.041 Radiographic dye allergy status; Z90.710 Acquired absence of both cervix and uterus; Z86.14 Personal history of Methicillin resistant Staphylococcus aureus infection; Z79.890 Hormone replacement therapy; Z71.6 Tobacco abuse counseling

== ENCOUNTER → 2018-06-01 | Outpatient (CLI) | payer OTHER ==
[2018-06-01 07:08] LABS: Basophils % (A) 0 %; Eosinophils # (A) 0.1 k/uL (0-0.7); Eosinophils % (A) 0 %; HCT 40.8 % (34.0-46.0); HGB 13.9 gm/dL (11.4-16.0); Lymphocytes # (A) 2.5 k/uL (1.0-4.8); Lymphocytes % (A) 13 %; MCHC 34.1 g/dL (31.0-37.0); MCV 93.9 fL (80.0-100.0); Mean Platelet Volume 6.2; Monocytes # (A) 0.7 k/uL (0-1.0); Monocytes % (A) 4 %; Neutrophils % (A) 82 %; Platelet Count 295 k/uL (150-450); RBC 4.35 m/uL (3.80-5.40); RDW 13.1 % (11.5-15.5); WBC 18.3 k/uL (3.8-10.6)
[2018-06-01 08:33] LABS: Erythrocyte Sedimentation Rate 7 mm/hr (0-20)
[2018-06-01 11:13] LABS: Albumin 4.5 g/dL (3.80-4.90); Albumin/Globulin Ratio 1.96 (1.60-3.17); Anion Gap 9.6 mmol/L (4.00-12.00); C Reactive Protein 0.6 mg/dL (0.0-0.8); Calcium 9.9 mg/dL (8.7-10.3); Carbon Dioxide 25.4 mmol/L (21.6-31.8); Globulin 2.3 g/dL (1.6-3.3); Total Bilirubin 0.3 mg/dL (0.3-1.2); Total Protein 6.8 g/dL (6.2-8.2)
[2018-06-01 11:15] LABS: Rheumatoid Factor 7 IU/mL (0-15)
[2018-06-04 13:58] LABS: APTT 34 Sec(s) (<43); Dilute Russell Viper Venom 39 Sec(s) (<44)
== END ==
LOC: LABWHC1 06:42
PROVIDERS: ATTEND Physician Assistant
DX: M13.0 Polyarthritis, unspecified (principal)
CPT/HCPCS: 36415; 80053; 85025; 85613; 85652; 85730; 86038; 86140; 86431

== ENCOUNTER → 2018-09-28 | Outpatient (CLI) | payer OTHER ==
--- NOTE | 2018-10-05 20:02 | EM ---
EVENT MONITOR 24-HOUR HOLTER MONITOR: The patient was monitored for 24 hours. CLINICAL INFORMATION: Baseline rhythm is a sinus mechanism with normal conduction. The average rate is 92 beats per minute, minimum 59, maximum 142 beats per minute. Ventricular ectopic activity was not present. Supraventricular ectopic activity was present in the form of rare single PACs. Symptoms of heart fluttering did not correlate with any dysrhythmia. CONCLUSION: 1. Sinus mechanism baseline rhythm. 2. No ventricular ectopic activity. 3. Rare supraventricular ectopic activity. 4. Symptoms did not correlate with any dysrhythmia. MMODL / IJN: [id number] /
== END | disposition home or self-care (01) ==
LOC: RADECHMAIN 11:58
PROVIDERS: ATTEND Internal Medicine
DX: I47.1 Supraventricular tachycardia (principal); R60.9 Edema, unspecified
CPT/HCPCS: 93225; 93226

== ENCOUNTER → 2018-10-26 | Outpatient (CLI) | payer OTHER ==
--- NOTE | 2018-10-27 15:51 | ECHOF ---
Referral Reason:I49.9 Cardiac arrhythmia unspecified, R60.9 MEASUREMENTS -------- HEIGHT: 170.2 cm WEIGHT: 112.9 kg BP: 114/72 IVSd: 1.0 cm (0.6 - 1.1) LVIDd: 4.2 cm (3.9 - 5.3) LVPWd: 1.1 cm (0.6 - 1.1) IVSs: 1.7 cm LVIDs: 2.8 cm LVPWs: 1.8 cm LA Diam: 3.3 cm (2.7 - 3.8) RVIDd: 3.2 cm (< 3.3) LAESV Index (A-L): 17.49 ml/m Ao Diam: 3.2 cm (2.0 - 3.7) AV Cusp: 2.3 cm (1.5 - 2.6) EPSS: 0.3 cm MV E Robby: 0.69 m/s MV DecT: 190 ms MV A Robby: 0.90 m/s MV E/A Ratio: 0.77 RAP: 5.00 mmHg RVSP: 23.47 mmHg MV EF SLOPE: 165.15 mm/s (70 - 150) MV EXCURSION: 1.86 cm (> 18.000) FINDINGS -------- Resting tachycardia (HR>100bpm). This was a technically adequate study. The left ventricular size is normal. There is borderline concentric left ventricular hypertrophy. Overall left ventricular systolic function is normal with, an EF between 60 - 65 %. The right ventricle is normal in size. Left atrium is normal size by volume. The right atrium is normal in size and function. Interatrial and interventricular septum intact. The aortic valve is trileaflet and appears structurally normal. The mitral valve is normal. Mild tricuspid regurgitation present. Right ventricular systolic pressure is normal at < 35 mmHg. Trace/mild (physiologic) pulmonic regurgitation. The aortic root size is normal. The inferior vena cava was not well visualized. There is no pericardial effusion. CONCLUSIONS -------- 1. Resting tachycardia (HR>100bpm). 2. This was a technically adequate study. 3. The left ventricular size is normal. 4. There is borderline concentric left ventricular hypertrophy. 5. Overall left ventricular systolic function is normal with, an EF between 60 - 65 %. 6. The right ventricle is normal in size. 7. Left atrium is normal size by volume. 8. The right atrium is normal in size and function. 9. Interatrial and interventricular septum intact. 10. The aortic valve is trileaflet and appears structurally normal. 11. The mitral valve is normal. 12. Mild tricuspid regurgitation present. 13. Right ventricular systolic pressure is normal at < 35 mmHg. 14. Trace/mild (physiologic) pulmonic regurgitation. 15. The aortic root size is normal. 16. The inferior vena cava was not well visualized. 17. There is no pericardial effusion. ADAPTIVE PHYSICAL EDUCATION SPECIALIST: Kadi Benito RDCS
== END | disposition home or self-care (01) ==
LOC: RADECHMAIN 13:16
PROVIDERS: ATTEND Internal Medicine
DX: I34.0 Nonrheumatic mitral (valve) insufficiency (principal); I37.1 Nonrheumatic pulmonary valve insufficiency; Z88.5 Allergy status to narcotic agent; Z88.8 Allergy status to other drugs, medicaments and biological substances
CPT/HCPCS: 93306

== ENCOUNTER → 2022-04-26 | Outpatient (CLI) | payer OTHER ==
--- NOTE | 2022-04-26 16:13 | US ---
EXAMINATION TYPE: US venous doppler duplex LE RT DATE OF EXAM: 04/26/2022 3:50 PM COMPARISON: NONE CLINICAL HISTORY: 41-year-old female RIGHT LEG PAIN M79.604. Pain right leg for 1-2 weeks. Patient cu rrently on blood thinners SIDE PERFORMED: Right TECHNIQUE: The lower extremity deep venous system is examined utilizing real time linear array sonog rishi with graded compression, doppler sonography and color-flow sonography. FINDINGS: VESSELS IMAGED: Common Femoral Vein Deep Femoral Vein Greater Saphenous Vein * Femoral Vein Popliteal Vein Small Saphenous Vein * Proximal Calf Veins (* superficial vessels) Right Leg: No evidence of DVT IMPRESSION: No evidence for DVT within the right lower extremity imaged from the groin to the upper calf.
== END | disposition home or self-care (01) ==
LOC: RADUSWWP 15:28
PROVIDERS: ATTEND Family Medicine
DX: M79.604 Pain in right leg (principal)

== ENCOUNTER → 2023-03-20 | Outpatient (CLI) | payer OTHER ==
--- NOTE | 2023-03-20 11:04 | US ---
EXAMINATION TYPE: US venous doppler duplex UE RT DATE OF EXAM: 03/20/2023 COMPARISON: NONE CLINICAL INDICATION: Female, 42 years old with history of I82.721 CHRONIC EMBOLISM AND THROMBOSIS; Pa in right arm. History of DVT left arm 2 years ago. Patient on blood thinner SIDE PERFORMED: right Right Arm: No evidence of DVT IMPRESSION: Grayscale, color doppler, spectral doppler imaging performed of the deep veins of the upper extremiti es. There is normal flow, compressibility and vascular waveforms.
== END | disposition home or self-care (01) ==
LOC: RADUSWWP 10:10
PROVIDERS: ATTEND Internal Medicine
DX: I82.721 Chronic embolism and thrombosis of deep veins of right upper extremity (principal)